=== PATIENT | female | born 1950 | race Caucasian/White ===

== ENCOUNTER → 2017-07-13 | Outpatient (CLI) | payer MEDICARE ==
--- NOTE | 2017-07-15 08:22 | MM ---
Reason for exam: screening (asymptomatic). Last mammogram was performed 1 year and 2 months ago. History: Patient is postmenopausal and has history of other cancer at age 56. Family history of breast cancer in paternal cousin. Benign MG stereo VAD BX RT of the right breast, December 24, 2014. Cancelled Left Mammotome of the left breast, May 24, 2007. Attempted Procedure of the left breast, May 24, 2007. Benign cyst aspiration, 1986. Physical Findings: A clinical breast exam by your physician is recommended on an annual basis and results should be correlated with mammographic findings. MG 3D Screening Mammo W/Cad Bilateral CC and MLO view(s) were taken. Prior study comparison: May 01, 2016, bilateral MG screening mammo w CAD. December 16, 2014, right breast MG work up mamm w CAD RT. December 10, 2014, bilateral MG screening mammo w CAD. April 13, 2013, bilateral digital screening mammo w/CAD. There are scattered fibroglandular densities. There are benign oil cysts. Previous mammotome biopsy within the right breast. No significant changes when compared with prior studies. ASSESSMENT: Negative, BI-RAD 1 RECOMMENDATION: Routine screening mammogram of both breasts in 1 year. Manage patient on a clinical basis. If there is recurrence of a palpable abnormality, targeted ultrasound can be performed.
== END | disposition home or self-care (01) ==
LOC: RADMAMWWP 14:36
PROVIDERS: ATTEND Family Medicine
DX: Z12.31 Encounter for screening mammogram for malignant neoplasm of breast (principal)
CPT/HCPCS: 77063; 77067

== ENCOUNTER 2017-09-07 07:11 | Day surgery (SDC) | payer MEDICARE ==
[2017-09-02 16:11] VITALS: BMI 39.0
[~2017-09-07 07:11] MED LIST: DEXAMETHASONE SOD PHOSPHATE 10 MG/ML 1 ML VIAL IV ONE; LACTATED RINGERS 1,000 ML IV SCH; ONDANSETRON 4 MG/2 ML VIAL IVP ONE
[2017-09-07] MEDS ORDERED: LIDOCAINE 1% 20 ML VIAL (10MG/ML) FOR IV START INTRADERMA ONE (07:22)
[2017-09-07 07:31] VITALS: RESP 16; TEMP 98.3
[2017-09-07 07:43] LABS: Glucose,Whole Blood 89 mg/dL (75-99)
[2017-09-07] MEDS ORDERED: GLYCOPYRROLATE 0.2 MG/ML 2 ML VIAL ONE (08:27)
[2017-09-07] MEDS ORDERED: PROPOFOL 10 MG/ML 20 ML VIAL IV ONE (08:27)
[2017-09-07] MEDS ORDERED: LIDOCAINE 1% INJ 10MG/ML (20 ML MDV) ONE (08:27)
--- NOTE | 2017-09-07 09:06 | P.PCN ---
Date of Procedure: 09/07/17 Procedure(s) Performed: Brief history: Patient is a pleasant 67-year-old pleasant white female scheduled for an elective upper endoscopy as well as colonoscopy as a part of evaluation of intermittent episodes of nausea vomiting for the last 6 months duration and prior history of colon polyps. Last colonoscopy was 5 years ago. Procedure performed: Esophagogastroduodenoscopy Colonoscopy with snare polypectomy Preoperative diagnosis: Intermittent nausea and vomiting of 6 month duration History of colon polyps Anesthesia: MAC Procedure: After informed consent was obtained from the patient was brought into the endoscopy unit and IV sedation was administered by anesthesia under continuous monitoring. Initially upper endoscopy was done. The Olympus GF 160 video endoscope was inserted inserted into the mouth and esophagus intubated without any difficulty and was gradually advanced into the stomach and duodenum and carefully examined. The bulb and second part of the duodenum appeared normal. The scope was then withdrawn into the stomach adequately insufflated with air and upon careful examination the antrum had scattered erosions consistent with gastritis and biopsies were done from this area. The body, cardia and fundus appeared normal. The scope was then withdrawn into the esophagus. The GE junction was located at 40 cm to the incisors. It appeared regular with no erythema erosions or ulcerations. Rest of the esophagus appeared normal. Patient tolerated the procedure well. At this time the patient continued to remain sedation. Initial digital rectal examination was normal. Olympus CF 160 video colonoscope was then inserted into the rectum and gradually advanced to the cecum without any difficulty. Careful examination was performed as the scope was gradually being withdrawn. The prep was poor and thorough irrigation was performed using irrigation system.. The cecum, appeared normal. In the ascending colon there was a 1 cm polyp that was removed by snare polypectomy. The rest of the ascending colon, transverse colon, descending colon, sigmoid colon and rectum appeared normal. In the distal rectum there were 2 polyps measuring 5 mm and 1 cm in size both of which were removed by snare polypectomy. Retroflexion was performed in the rectum and no lesions were noted. Patient tolerated the procedure well. Impression: 1. Upper endoscopy revealed antral erosive gastritis 2. Colonoscopy revealed 1 cm ascending colon polyp and 5mm,1 cm rectal polyp status post snare polypectomy Recommendations: Findings of this examination were discussed with the patient as well as her family. She was advised to follow with the biopsy results. She the biopsy shows a tubular adenoma she can have a repeat colonoscopy in 3 years.
[2017-09-07 09:23] VITALS: BP 111/80; PULSE 75
== END 2017-09-07 09:41 | disposition home or self-care (01) ==
LOC: ORWHC2ENDO 07:11
PROVIDERS: ATTEND Internal Medicine Gastroenterology
DX: Z12.11 Encounter for screening for malignant neoplasm of colon (principal); D12.2 Benign neoplasm of ascending colon; K62.1 Rectal polyp; K29.50 Unspecified chronic gastritis without bleeding; Z86.010 Personal history of colon polyps; I10 Essential (primary) hypertension; E78.5 Hyperlipidemia, unspecified; J44.9 Chronic obstructive pulmonary disease, unspecified; F39 Unspecified mood [affective] disorder; Z86.73 Personal history of transient ischemic attack (TIA), and cerebral infarction without residual deficits; Z86.718 Personal history of other venous thrombosis and embolism; Z79.82 Long term (current) use of aspirin; Z79.899 Other long term (current) drug therapy; Z79.52 Long term (current) use of systemic steroids; Z88.5 Allergy status to narcotic agent; Z88.2 Allergy status to sulfonamides; Z87.891 Personal history of nicotine dependence
CPT/HCPCS: 45385; 43239; J2001; J2704; 88305

== ENCOUNTER → 2018-07-31 | Outpatient (CLI) | payer MEDICARE ==
--- NOTE | 2018-08-01 09:52 | MM ---
Reason for exam: screening (asymptomatic). Last mammogram was performed 1 year and 1 month ago. History: Patient is postmenopausal and has history of other cancer at age 56. Family history of breast cancer in paternal cousin at age 33. Benign MG stereo VAD BX RT of the right breast, December 24, 2014. Cancelled Left Mammotome of the left breast, May 24, 2007. Attempted Procedure of the left breast, May 24, 2007. Benign cyst aspiration, 1986. Physical Findings: A clinical breast exam by your physician is recommended on an annual basis and results should be correlated with mammographic findings. MG 3D Screening Mammo W/Cad Bilateral CC and MLO view(s) were taken. Prior study comparison: July 13, 2017, bilateral MG 3d screening mammo w/cad. May 01, 2016, bilateral MG screening mammo w CAD. There are scattered fibroglandular densities. Stable benign calcifications. There is no discrete abnormality. No significant changes when compared with prior studies. ASSESSMENT: Benign, BI-RAD 2 RECOMMENDATION: Routine screening mammogram of both breasts in 1 year.
== END | disposition home or self-care (01) ==
LOC: RADMAMWWP 08:42
PROVIDERS: ATTEND Family Medicine
DX: Z12.31 Encounter for screening mammogram for malignant neoplasm of breast (principal)
CPT/HCPCS: 77063; 77067

== ENCOUNTER → 2021-02-20 | Outpatient (CLI) | payer MEDICARE ==
--- NOTE | 2021-02-20 10:50 | CT ---
EXAMINATION TYPE: CT thoracic spine wo con DATE OF EXAM: 02/20/2021 COMPARISON: None HISTORY: 70-year-old female Back pain TECHNIQUE: Contiguous axial scanning of the thoracic spine without IV contrast. Coronal and sagittal reconstructions performed. CT DLP: 1405.2 mGycm Automated exposure control for dose reduction was used. FINDINGS: There is an incidental highly suspicious lobulated mass posterior right base measuring 6.4 x 4.3 cm. PET/CT for further evaluation. Gentle reverse S-shaped scoliotic curvature. Suggestion of old healed fracture deformity of the T2 spinous process. Moderate to advanced spondylitic change visualized lower cervical spine with hypertrophic facet and u ncovertebral joint arthropathy. Facet arthropathy throughout the thoracic spine. Trace grade 1 anterolisthesis T5-T6 and T6-T7. Trace grade 1 retrolisthesis T12-L1. By CT, no large focal disc herniation or evident canal compromise is seen. Tiny posterior protrusions may be present such as at T8-T9. On the left, facet arthropathy contributes to variable mild neural foraminal narrowing upper and lowe r thoracic spine. On the right, changes result in variable mild neuroforaminal narrowing in the upper thoracic spine. No high-grade foraminal compromise is seen. IMPRESSION: 1. INCIDENTAL HIGHLY SUSPICIOUS LOBULATED MASS POSTERIOR RIGHT LUNG BASE MEASURING 6.4 X 4.3 CM. PULM ONARY MEDICINE REFERRAL AND PET/CT EVALUATION ADVISED. 2. GENTLE REVERSE S-SHAPED SCOLIOSIS. 3. CERVICAL SPINE DEMONSTRATES MODERATE TO ADVANCED SPONDYLOTIC CHANGE . 4. SCATTERED [id number] FACET ARTHROPATHY THROUGHOUT THE THORACIC SPINE. DEGENERATIVE GRADE 1 S PONDYLOLISTHESIS T5-T6, T6-T7, AND T12-L1. 5. TINY POSTERIOR DISC PROTRUSIONS MAY BE PRESENT SUCH THAT T8-T9. BY CT, NO EVIDENT CANAL COMPROM ISE. 6. VARIABLE MILD NEURAL FORAMINAL NARROWING. NO HIGH-GRADE FORAMINAL COMPROMISE SEEN.
--- NOTE | 2021-02-20 11:00 | CT ---
EXAMINATION TYPE: CT lumbar spine wo con DATE OF EXAM: 02/20/2021 COMPARISON: None HISTORY: 70-year-old female M54.5, M4.6, Back pain TECHNIQUE: Contiguous axial scanning of the lumbar spine without IV contrast. Coronal and sagittal re constructions performed. CT DLP: 1843.80 mGycm Automated exposure control for dose reduction was used. FINDINGS: Incidental 3.8 cm infrarenal AAA and some scattered sigmoid colonic diverticulosis. Partially visualized posterior right basilar mass as mentioned on CT of the thoracic spine. Vertebral body heights are preserved. Moderate degenerative disc disease T12-L1 with narrowed, desiccated, and bulging disc. There is a levoconvex curvature at the mid lumbar spine with moderate degenerative disc disease along the right lateral aspect of L2-L3 spinal curvature. Compensatory moderate to severe degenerative disc disease towards the left at L4-L5. Bulging discs are present throughout. 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 Corresponding ligamentum flavum thickening. Accentuated lumbar lordosis. Grade 1 retrolisthesis T12-L1, L1-L2, L2-L3, L3-L4. Nearly grade 2 anterolisthesis L4-L5. Degenerative interbody ankylosis at the L5-S1 level. At T12-L1, diffuse disc bulge without significant spinal canal stenosis. Minimal inferior foraminal n arrowing on the right. At L1-L2, diffuse disc bulge. No significant spinal canal stenosis. Minimal inferior neural foraminal narrowing on the right. At L2-L3, there is diffuse disc bulge contributing to a mild bile canal stenosis. Along with facet ar thropathy, changes result in a moderate right neuroforaminal stenosis. At L3-L4, hypertrophic facet arthropathy and bulging disc with ligamentum flavum thickening. Circumfe rential attenuation of the thecal sac without significant spinal canal stenosis. Changes result in mo derate right and mild left foraminal stenosis. At L4-L5, ligamentum flavum thickening, nearly grade 2 anterolisthesis, hypertrophic facet arthropath y, and bulging disc. Changes result in a focal moderate or severe spinal canal stenosis. Severe left and moderate right neuroforaminal stenosis. At L5-S1, bony interbody ankylosis. Hypertrophic facet arthropathy. Mild bilateral neuroforaminal tess rowing. No spinal canal stenosis. IMPRESSION: 1. INCIDENTAL INFRARENAL AAA AT 3.8 CM. SUSPICIOUS POSTERIOR RIGHT BASILAR PULMONARY MASS MENTIONE D ON CT OF THE THORACIC SPINE TODAY. 2. DEGENERATED LEVOCONVEX SCOLIOSIS. 3. MODERATE TO SEVERE DEGENERATIVE DISC DISEASE TOWARDS THIS SIDE OF CONCAVITY, ALONG THE RIGHT LATER AL ASPECT OF L2-L3 AND LEFT LATERAL ASPECT OF L4-L5. 4. ADVANCED HYPERTROPHIC FACET ARTHROPATHY WITH SCATTERED LIGAMENTUM FLAVUM THICKENING, AND BAASTRUP' S DISEASE. 5. DEGENERATIVE GRADE 1 RETROLISTHESIS T12 THROUGH L4 LEVELS AND NEARLY GRADE 2 ANTEROLISTHESIS L4-L5 . 6. AT L4-L5, CHANGES RESULT IN OVERALL MODERATE TO SEVERE SPINAL CANAL STENOSIS. SEVERE LEFT AND MODE RATE RIGHT NEURAL FORAMINAL STENOSIS. 7. MILD OVERALL NARROWING OF THE SPINAL CANAL AT L3-L4. MODERATE RIGHT AND MILD LEFT NEUROFORAMINAL S TENOSIS. ADDITIONAL MODERATE RIGHT NEUROFORAMINAL STENOSIS AT L2-L3.
--- NOTE | 2021-02-22 15:46 | MR ---
EXAMINATION TYPE: MR tspine/lspine wo con DATE OF EXAM: 02/20/2021 COMPARISON: CT thoracic and lumbar spine 02/20/2021 HISTORY: Low back pain, thoracic pain TECHNIQUE: Multiplanar, multisequence imaging of the thoracic and lumbar spine is performed without I V contrast. FINDINGS: Thoracic spine MRI: There is no significant spinal stenosis or foraminal encroachment. There is a sli ght spinal curvature. There is multilevel spondylosis present with some associated loss of disc heigh t and signal at intervertebral levels. No sizable disc herniation present. Facet arthropathy changes are present multiple levels. There is a soft tissue mass present in the right lower lobe as noted on CT. IMPRESSION: Right lower lobe lung mass. Degenerative disc disease, mild scoliosis. Facet arthropathy. Lumbar spine MRI: Spinal curvature is again noted. Infrarenal abdominal aortic ectasia to 3.5 cm note d. Lumbar vertebral bodies show preserved height. There is multilevel spondylosis with endplate disco genic marrow signal change, loss of disc height signal at intervertebral levels especially L5-S1, L3- 4 and L2-3, L1 to consistent with disc desiccation and degenerative disc disease. Sagittal images of the lumbar spine show anterolisthesis grade 1 L4-5 L5-S1 shows posterior extension endplate disc complex effaces the anterior thecal sac, no significant spinal stenosis or foraminal encroachment. There is facet arthropathy change. L4-5: Hypertrophic changes of the facets with associated circumferential posterior disc bulge results in a trefoil appearance of the thecal sac, moderate to severe spinal stenosis. Listhesis also contri butes to cause bilateral foraminal encroachment. There is encroachment on the lateral recesses. L3-4: Circumferential posterior disc bulge causes anterior mass effect on the thecal sac. There is fa cet arthropathy change with hypertrophy of ligamentum flavum present. There is a mild spinal stenosis , circumferential extension endplate disc complex encroaches on the inferior aspect of the foramina. L2-3: Posterior broad-based disc bulge causes anterior mass effect on the thecal sac. Circumferential extension of endplate disc complex causes some foraminal encroachment inferior aspect on the right. There is facet arthropathy change present. L1-2: Posterior broad-based disc bulge causes mild anterior mass effect on the thecal sac. There is s ome facet arthropathy change. No significant foraminal encroachment or spinal stenosis. T12-L1: Posterior broad-based disc bulge causes mild anterior mass effect on the thecal sac. There ar e hypertrophic changes at the facets causing some posterior lateral mass effect on the thecal sac. No significant foraminal encroachment. IMPRESSION: Degenerative disc disease, spinal stenosis, spondylolisthesis, facet arthropathy and infr arenal abdominal aortic ectasia.
== END | disposition home or self-care (01) ==
LOC: RADCTMAIN 07:40
PROVIDERS: ATTEND Orthopaedic Surgery
DX: M47.814 Spondylosis without myelopathy or radiculopathy, thoracic region (principal); M43.14 Spondylolisthesis, thoracic region; M99.72 Connective tissue and disc stenosis of intervertebral foramina of thoracic region; M51.36 Other intervertebral disc degeneration, lumbar region; M47.816 Spondylosis without myelopathy or radiculopathy, lumbar region; M43.15 Spondylolisthesis, thoracolumbar region; M48.061 Spinal stenosis, lumbar region without neurogenic claudication; M41.86 Other forms of scoliosis, lumbar region; M99.73 Connective tissue and disc stenosis of intervertebral foramina of lumbar region
CPT/HCPCS: 72128; 72131; 72146; 72148

== ENCOUNTER → 2021-02-27 | Outpatient (CLI) | payer MEDICARE ==
[2021-02-27 11:13] LABS: African American GFR (CKD) >90 (>60 ml/min/1.73 sqM); Blood Urea Nitrogen 16 mg/dL (7-17); Non-African American GFR(CKD) 89 (>60 ml/min/1.73 sqM)
--- NOTE | 2021-02-27 11:49 | CT ---
EXAMINATION TYPE: CT chest w con DATE OF EXAM: 02/27/2021 COMPARISON: None HISTORY: Abnormal prior scan. CT DLP: 528.6 mGycm Automated exposure control for dose reduction was used. CONTRAST: CT scan of the chest is performed with IV Contrast, patient injected with 100 mL of Isovue 300. FINDINGS: LUNGS: Partially pleural-based mass right lower lobe medially measuring 6.0 x 4.2 x 5.0 cm. This is f elt to reflect malignancy until proven otherwise. Recommend PET/CT for further evaluation. No additio nal masses noted. Small groundglass nodule left upper lobe measuring 8.7 mm image 19. Scattered areas of groundglass opacity within the upper. MEDIASTINUM: There are no greater than 1 cm hilar or mediastinal lymph nodes. No pericardial effusi on is seen. Thoracic aorta is of normal caliber. The heart is not enlarged. UPPER ABDOMEN: No significant abnormality appreciated. OTHER: No additional significant abnormality is seen. IMPRESSION: 1. Suspicious partially pleural-based mass right lower lobe. PET/CT advised to exclude malignancy. 2. Groundglass nodule left upper lobe as well as additional non nodule groundglass changes may be inf lammatory/postinflammatory in nature..
== END | disposition home or self-care (01) ==
LOC: RADCTMAIN 10:28
PROVIDERS: ATTEND Internal Medicine Critical Care Medicine
DX: R91.8 Other nonspecific abnormal finding of lung field (principal); R91.1 Solitary pulmonary nodule
CPT/HCPCS: 82565; 84520; 71260; 36415; Q9967

== ENCOUNTER → 2021-03-19 | Outpatient (CLI) | payer MEDICARE ==
--- NOTE | 2021-03-20 09:52 | MM ---
Reason for exam: screening (asymptomatic). Last mammogram was performed 2 years and 8 months ago. History: Patient is postmenopausal and has history of other cancer at age 56. Family history of breast cancer in paternal cousin at age 33. Benign MG stereo VAD BX RT of the right breast, December 24, 2014. Cancelled Left Mammotome of the left breast, May 24, 2007. Attempted Procedure of the left breast, May 24, 2007. Benign cyst aspiration, 1986. Physical Findings: A clinical breast exam by your physician is recommended on an annual basis and results should be correlated with mammographic findings. MG 3D Screening Mammo W/Cad Bilateral CC and MLO view(s) were taken. Prior study comparison: July 31, 2018, bilateral MG 3d screening mammo w/cad. July 13, 2017, bilateral MG 3d screening mammo w/cad. There are scattered fibroglandular densities. Stable benign calcifications. There is no discrete abnormality. No significant changes when compared with prior studies. ASSESSMENT: Benign, BI-RAD 2 RECOMMENDATION: Routine screening mammogram of both breasts in 1 year.
== END | disposition home or self-care (01) ==
LOC: RADMAMWWP 07:27
PROVIDERS: ATTEND Family Medicine
DX: Z12.31 Encounter for screening mammogram for malignant neoplasm of breast (principal); Z80.3 Family history of malignant neoplasm of breast; Z85.89 Personal history of malignant neoplasm of other organs and systems
CPT/HCPCS: 77063; 77067

== ENCOUNTER 2021-03-31 08:46 | Day surgery (SDC) | payer MEDICARE ==
[2021-03-31] MEDS ORDERED: ALPRAZolam 0.25 MG TAB PO STA (09:46)
[2021-03-31 09:52] LABS: Mean Platelet Volume 7.1; Platelet Count 324 k/uL (150-450)
[2021-03-31 09:57] LABS: INR 1.1 (<1.2); Prothrombin Time 11.1 sec (9.0-12.0)
[2021-03-31 10:25] VITALS: RESP 18
--- NOTE | 2021-03-31 10:54 | XR ---
EXAMINATION TYPE: XR chest 1V portable DATE OF EXAM: 03/31/2021 COMPARISON: Chest CT February 27, 2021 HISTORY: Post right lung biopsy. TECHNIQUE: Single AP portable frontal upright view of the chest is obtained. FINDINGS: There is some chronic parenchymal changes bilaterally without suspicious new focal air spa ce opacity, pleural effusion, or pneumothorax seen. Posterior right basilar lung mass is redemonstrat ed. The cardiac silhouette size is stable and mildly enlarged. Underlying scoliosis again seen. IMPRESSION: No pneumothorax after right lung biopsy.
[2021-03-31 11:27] VITALS: BP 134/74; PULSE 84
--- NOTE | 2021-03-31 12:57 | CT ---
EXAMINATION TYPE: CT biopsy lung RT DATE OF EXAM: 03/31/2021 HISTORY: Lung mass right lower lobe COMPARISON: Chest CT dated 02/27/2021 Maximal barrier technique was utilized, hand hygiene obtained with soap and water. The skin overlyin g a suitable path to the mass in the right lower lobe was localized using CT and the overlying skin w as prepped and draped. Lidocaine used for local anesthesia. A skin santiago made with a scalpel. Using CT guidance, access was gained to the lesion with a 20-gauge core needle through a 19-gauge guide. Core specimen submitted to cytology. 3 pass(es) performed in all. Following the procedure no immed iate complications. The patient is discharged in stable condition. Hemostasis achieved. IMPRESSION: SUCCESSFUL CT GUIDED BIOPSY. PATHOLOGY PENDING. THIS PROCEDURE WAS PERFORMED BY THE UNDERSIGNED.
--- NOTE | 2021-03-31 13:54 | XR ---
EXAMINATION TYPE: XR chest 1V portable DATE OF EXAM: 03/31/2021 COMPARISON: Chest x-ray from earlier today HISTORY: Right lung biopsy. TECHNIQUE: Single frontal view of the chest is obtained. FINDINGS: There is mild chronic emphysematous change without suspicious new focal air space opacity, pleural effusion, or pneumothorax seen. Right medial basilar mass redemonstrated. The cardiac silhou ette size is stable and mildly enlarged. Slight underlying scoliosis redemonstrated. IMPRESSION: No pneumothorax after right medial basilar mass biopsy.
== END 2021-03-31 13:00 | disposition home or self-care (01) ==
LOC: RADPROMAIN 08:46
PROVIDERS: ATTEND Internal Medicine Critical Care Medicine
DX: C34.91 Malignant neoplasm of unspecified part of right bronchus or lung (principal)
CPT/HCPCS: 32408; 71045; 77012; 85049; 85610; 88305; 88342

== ENCOUNTER → 2021-04-10 | Outpatient (CLI) | payer MEDICARE ==
--- NOTE | 2021-04-10 15:39 | PE ---
EXAMINATION TYPE: PET CT fusion skull to thigh DATE OF EXAM: 04/10/2021 COMPARISON: Chest CT February 27, 2021 HISTORY: Right lung nodule. Abnormal CT. TECHNIQUE: Following the intravenous administration of 10.45 mCi of F-18 FDG, whole body images are performed from the skull base to the midthigh. Images are reviewed on the computer in the coronal, a xial, and sagittal planes. Reconstructed rotating images are created on independent workstation and reviewed on the computer. A localization and attenuation correction CT is performed in conjunction with the PET scan. Blood glucose level equals 101. SCAN: Initial Scan FINDINGS: SKULL BASE AND NECK: No suspicious hypermetabolic uptake. CHEST, MEDIASTINUM, AND HILAR REGION: Abnormal posterior lobulated right lung mass axial image 113 me asures 6.5 x 4.1 cm, max SUV is 13.06. No abnormal hypermetabolic thoracic adenopathy. ABDOMEN AND PELVIS: No abnormal hypermetabolic adrenal masses. Normal excretion. OSSEOUS STRUCTURES: No abnormal hypermetabolic uptake. OTHER CT: There is coronary artery calcification and/or stents. Mild cardiomegaly. Uterus is surgically absent. Grade 1 anterolisthesis L4 on L5. Moderate to severe disc space narrowin g lumbosacral junction. IMPRESSION: Abnormal hypermetabolic uptake in the posterior right basilar mass presumed neoplasm. No suspicious adenopathy or metastatic disease seen.
== END | disposition home or self-care (01) ==
LOC: RADPETMAIN 10:45
PROVIDERS: ATTEND Internal Medicine Critical Care Medicine
DX: R91.8 Other nonspecific abnormal finding of lung field (principal)
CPT/HCPCS: 78815; A9552

== ENCOUNTER → 2021-04-17 | Outpatient (CLI) | payer MEDICARE ==
--- NOTE | 2021-04-18 04:33 | MR ---
EXAMINATION TYPE: MR brain wo/w con DATE OF EXAM: 04/17/2021 COMPARISON: None HISTORY: Lung cancer. CONTRAST: Standard multiplanar, multisequence MRI departmental protocol utilizing 10.5 mL intravenous Gadavist gadolinium contrast. There is cerebral cortical atrophy. There is no mass effect nor midline shift. There is no sign of in tracranial hemorrhage. There is diffuse increased signal on the T2 and FLAIR images in the rafia. Ther e is increased signal adjacent to the lateral ventricles bilaterally. There are scattered foci of inc reased signal in the periventricular white matter that measure up to 5 mm. Total number is approximat ramsey 15. On the diffusion images there is some subtle increased signal in the rafia with The sella turcica appears normal. Symmetrical pattern. There is no evidence of orbital mass. Corpus callosum appears intact. The contrast images show no pat hologic enhancement. There is normal enhancement of the venous sinuses. IMPRESSION: Abnormal increased signal in the periventricular white matter as well as the rafia consistent with mul tifocal small vessel ischemia . Demyelinating disease not excluded. No cortical infarct.
== END | disposition home or self-care (01) ==
LOC: RADMRIMAIN 08:53
PROVIDERS: ATTEND Internal Medicine Hematology & Oncology
DX: C34.90 Malignant neoplasm of unspecified part of unspecified bronchus or lung (principal); R93.0 Abnormal findings on diagnostic imaging of skull and head, not elsewhere classified
CPT/HCPCS: 70553; A9585

== ENCOUNTER 2021-05-25 11:44 | Outpatient (CLI) | payer MEDICARE ==
--- NOTE | 2021-05-25 11:39 | US ---
EXAMINATION TYPE: US venous doppler duplex LE LT DATE OF EXAM: 05/25/2021 11:31 AM COMPARISON: NONE CLINICAL HISTORY: LLE; R22.42 Localized swelling, mass and lump, lef. history of DVt in Left lower ex tremity SIDE PERFORMED: Left TECHNIQUE: The lower extremity deep venous system is examined utilizing real time linear array sonog terry with graded compression, doppler sonography and color-flow sonography. VESSELS IMAGED: Common Femoral Vein Deep Femoral Vein Greater Saphenous Vein * Femoral Vein Popliteal Vein Small Saphenous Vein * Proximal Calf Veins (* superficial vessels) Left Leg: Small amount of thrombus seen in the Proximal FV,PopV and the GSV in the calf. Slow flow n oted in the GSV at the mid thigh level. IMPRESSION: DVT as noted as well as superficial vein thrombosis.
== END 2021-05-25 14:10 | disposition left against medical advice (07) ==
LOC: RADXRWHC 11:44 → EC 11:44
PROVIDERS: ATTEND Emergency Medicine
DX: R22.42 Localized swelling, mass and lump, left lower limb (principal); C34.31 Malignant neoplasm of lower lobe, right bronchus or lung; J44.9 Chronic obstructive pulmonary disease, unspecified; Z79.899 Other long term (current) drug therapy; Z87.891 Personal history of nicotine dependence; Z88.2 Allergy status to sulfonamides; Z88.5 Allergy status to narcotic agent

== ENCOUNTER → 2021-07-07 | Outpatient (CLI) | payer MEDICARE ==
[2021-07-07 11:21] LABS: African American GFR (CKD) >90 (>60 ml/min/1.73 sqM); Blood Urea Nitrogen 9 mg/dL (7-17); Non-African American GFR(CKD) >90 (>60 ml/min/1.73 sqM)
--- NOTE | 2021-07-07 12:03 | CT ---
EXAMINATION TYPE: CT chest w con DATE OF EXAM: 07/07/2021 COMPARISON: 04/10/2021 HISTORY: lugs ca CT DLP: 745 mGycm Automated exposure control for dose reduction was used. TECHNIQUE: CT scan of the chest is performed with IV Contrast, patient injected with 100 mL of Isovue 300. MIP Images are created on CT scanner and reviewed. 3D reconstructed images are created on an independent workstation and reviewed. FINDINGS: LUNGS: The prior exam the posterior right lung mass measures 6.5 x 4.1 cm and now 5.5 x 4[address] eural effusion or pneumothorax. Along the medial margin superior segment right lower lobe there are 2 mm subpleural nodules which are too small to characterize. Vague densities measuring 4 mm within the right upper lobe are likely inflammatory. Additional subsegmental areas of consolidation are most ty pical of atelectasis with no evidence of pneumothorax.. MEDIASTINUM: There are no greater than 1 cm hilar or mediastinal lymph nodes. No pericardial effusi on is seen. Coronary artery calcification noted. Aorta of normal caliber. There is a filling defect within a superior segment right lower lobe pulmonary artery branch suspicious for pulmonary embolism. OTHER: Hypertrophic and degenerative changes of the spine. IMPRESSION: 1. There is interval slight diminution in the size of the right posterior lung mass previously measur ing 6.5 x 4.1 cm and now measuring 5.5 x 4.1 cm. 2. There is interval filling defect within a right lower lobe pulmonary arterial branch compatible wi th a pulmonary embolism. Report called to referring clinician 11:58 AM, 07/07/2021.
== END | disposition home or self-care (01) ==
LOC: RADCTMAIN 10:26
PROVIDERS: ATTEND Internal Medicine Hematology & Oncology
DX: C34.31 Malignant neoplasm of lower lobe, right bronchus or lung (principal); R91.8 Other nonspecific abnormal finding of lung field
CPT/HCPCS: 82565; 84520; 71260; 36415; Q9967

== ENCOUNTER 2021-09-26 10:35 | Emergency (ER) | payer MEDICARE, SELFPAY ==
[2021-09-26 10:47] VITALS: RESP 18; TEMP 98.1
--- NOTE | 2021-09-26 11:36 | XR ---
EXAMINATION TYPE: XR chest 2V DATE OF EXAM: 09/26/2021 COMPARISON: Chest x-ray March 31, 2021. CT chest July 07, 2021 HISTORY: History of lung cancer with difficulty in breathing. TECHNIQUE: Frontal and lateral views of the chest are obtained. FINDINGS: There is mild chronic parenchymal change without suspicious new focal air space opacity, p leural effusion, or pneumothorax seen. Persistent medial right basilar mass or neoplasm. The cardiac silhouette size is stable and mildly enlarged. Underlying dextroconvex scoliosis centered lower thor acic spine redemonstrated. IMPRESSION: Chronic changes and mild cardiomegaly without new acute pulmonary process.
--- NOTE | 2021-09-26 11:48 | ED ---
General Adult HPI - General Chief complaint: Recheck/Abnormal Lab/Rx Stated complaint: Abnormal Labs Time Seen by Provider: 09/26/21 10:50 Source: patient, family, RN notes reviewed, old records reviewed Mode of arrival: wheelchair Limitations: no limitations - History of Present Illness Initial comments: This is a 71-year-old female presents to the emergency department stating that she got a call from her oncologist and told her to come to the emergency department because her electrolytes off. Patient states she feels a little weaker than normal but aside from that she feels at her baseline. Patient denies any difficulty breathing shortness of breath per patient any palpitations. Patient denies any recent fever chills or cough. Patient denies any abdominal pain patient denies any nausea vomiting diarrhea. Patient states she has been diagnosed with lung cancer last March and is being treated for DVTs in her legs. - Related Data Home Medications Medication Instructions Recorded Confirmed Aspirin [Adult Low Dose Aspirin EC] 81 mg PO DAILY 09/02/17 03/23/21 DULoxetine HCL [Cymbalta] 60 mg PO QAM 09/02/17 03/23/21 Losartan [Cozaar] 25 mg PO QAM 09/02/17 03/23/21 Simvastatin [Zocor] 40 mg PO HS 09/02/17 03/23/21 buPROPion HCL [Wellbutrin SR] 150 mg PO QAM 09/02/17 03/23/21 Albuterol Nebulized [Ventolin 2.5 mg INHALATION BID PRN 03/23/21 03/23/21 Nebulized] Cholecalciferol [Vitamin D3 (25 1 tab PO DAILY 03/23/21 03/23/21 Mcg = 1000 Iu)] Meloxicam 15 mg PO DAILY 03/23/21 03/23/21 Omeprazole 20 mg PO DAILY 03/23/21 03/23/21 Ubidecarenone [Co Q-10] 100 mg PO DAILY 03/23/21 03/23/21 Umeclidinium Brm/Vilanterol Tr 1 puff INHALATION DAILY 03/23/21 03/23/21 [Anoro Ellipta 62.5-25 Mcg INH] Allergies Allergy/AdvReac Type Severity Reaction Status Date / Time codeine Allergy headache Verified 09/26/21 10:47 Sulfa (Sulfonamide Allergy Migraine Verified 09/26/21 10:47 Antibiotics) headache Review of Systems ROS Statement: Those systems with pertinent positive or pertinent negative responses have been documented in the HPI. ROS Other: All systems not noted in ROS Statement are negative. Past Medical History Past Medical History: Cancer, COPD, CVA/TIA, Deep Vein Thrombosis (DVT), Hyperlipidemia, Hypertension Additional Past Medical History / Comment(s): hx of colon polyps, states mult DVT left leg, hx skin ca, current bronchitis, lung Ca History of Any Multi-Drug Resistant Organisms: None Reported Past Surgical History: Adenoidectomy, Hysterectomy, Tonsillectomy Additional Past Surgical History / Comment(s): bilateral cataract removal Past Anesthesia/Blood Transfusion Reactions: No Reported Reaction Past Psychological History: No Psychological Hx Reported Smoking Status: Former smoker Past Alcohol Use History: Rare - Past Family History Daughter(s) Family Medical History: Deep Vein Thrombosis (DVT) General Exam - General Exam Comments Initial Comments: GENERAL: Patient is well-developed and well-nourished. Patient is nontoxic and well- hydrated and is in no acute distress. ENT: Neck is soft and supple. No significant lymphadenopathy is noted. Oropharynx is clear. Moist mucous membranes. Neck has full range of motion without eliciting any pain. EYES: The sclera were anicteric and conjunctiva were pink and moist. Extraocular movements were intact and pupils were equal round and reactive to light. Eyelids were unremarkable. PULMONARY: Unlabored respirations. Good breath sounds bilaterally. No audible rales rhonchi or wheezing was noted. CARDIOVASCULAR: There is a regular rate and rhythm without any murmurs gallops or rubs. ABDOMEN: Soft and nontender with normal bowel sounds. SKIN: Skin is clear with no lesions or rashes and otherwise unremarkable. NEUROLOGIC: Patient is alert and oriented x3. Cranial nerves II through XII are grossly in tact. Motor and sensory are also intact. Normal speech, volume and content. Symmetrical smile. MUSCULOSKELETAL: Normal extremities with adequate strength and full range of motion. LYMPHATICS: No significant lymphadenopathy is noted PSYCHIATRIC: Normal psychiatric evaluation. 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 No ST segment elevation or depression I spoke with Dr. Molina he indicated to me that the calcium and so he were extremely low yesterday he just wanted to see if they were really low or was a lab error. Today's calcium and sodium were normal patient is pretty much without symptoms other than feeling a little weak so she can be discharged home to follow-up with Dr. Molina - Lab Data Result diagrams: 09/26/21 12:05 09/26/21 12:05 Lab Results 09/26/21 09/26/21 Range/Units 12:05 12:05 WBC 6.0 (3.8-10.6) k/uL RBC 3.99 (3.80-5.40) m/uL Hgb 12.2 (11.4-16.0) gm/dL Hct 37.9 (34.0-46.0) % MCV 95.2 (80.0-100.0) fL MCH 30.5 (25.0-35.0) pg MCHC 32.0 (31.0-37.0) g/dL RDW 12.9 (11.5-15.5) % Plt Count 245 (150-450) k/uL MPV 7.0 Neutrophils % 70 % Lymphocytes % 18 % Monocytes % 7 % Eosinophils % 3 % Basophils % 1 % Neutrophils # 4.2 (1.3-7.7) k/uL Lymphocytes # 1.1 (1.0-4.8) k/uL Monocytes # 0.4 (0-1.0) k/uL Eosinophils # 0.2 (0-0.7) k/uL Basophils # 0.1 (0-0.2) k/uL Sodium 137 (137-145) mmol/L Potassium 5.3 H (3.5-5.1) mmol/L Chloride 104 (98-107) mmol/L Carbon Dioxide 26 (22-30) mmol/L Anion Gap 7 mmol/L BUN 11 (7-17) mg/dL Creatinine 0.68 (0.52-1.04) mg/dL Est GFR (CKD-EPI)AfAm >90 (>60 ml/min/1.73 sqM) Est GFR (CKD-EPI)NonAf 89 (>60 ml/min/1.73 sqM) Glucose 104 H (74-99) mg/dL Calcium 8.7 (8.4-10.2) mg/dL Magnesium 1.9 (1.6-2.3) mg/dL Total Bilirubin 0.8 (0.2-1.3) mg/dL AST 36 (14-36) U/L ALT 12 (4-34) U/L Alkaline Phosphatase 87 (38-126) U/L Total Protein 7.5 (6.3-8.2) g/dL Albumin 3.9 (3.5-5.0) g/dL Disposition Clinical Impression: Recheck/Abnormal Lab/Rx Disposition: HOME SELF-CARE Condition: Good Additional Instructions: Patient should follow-up with Dr. Molina Is patient prescribed a controlled substance at d/c from ED?: No Referrals: Lobito Morley DO [Primary Care Provider] - 1-2 days Time of Disposition: 13:26
[2021-09-26 12:21] LABS: Basophils # (A) 0.1 k/uL (0-0.2); Basophils % (A) 1 %; Eosinophils # (A) 0.2 k/uL (0-0.7); Eosinophils % (A) 3 %; HCT 37.9 % (34.0-46.0); HGB 12.2 gm/dL (11.4-16.0); Lymphocytes # (A) 1.1 k/uL (1.0-4.8); Lymphocytes % (A) 18 %; MCH 30.5 pg (25.0-35.0); MCV 95.2 fL (80.0-100.0); Monocytes # (A) 0.4 k/uL (0-1.0); Monocytes % (A) 7 %; Neutrophils # (A) 4.2 k/uL (1.3-7.7); Neutrophils % (A) 70 %; Platelet Count 245 k/uL (150-450); RBC 3.99 m/uL (3.80-5.40); RDW 12.9 % (11.5-15.5)
[2021-09-26 12:26] LABS: ALT 12 U/L (4-34); AST 36 U/L (14-36); African American GFR (CKD) >90 (>60 ml/min/1.73 sqM); Albumin 3.9 g/dL (3.5-5.0); Alkaline Phosphatase 87 U/L (38-126); Anion Gap 7 mmol/L; Blood Urea Nitrogen 11 mg/dL (7-17); Calcium 8.7 mg/dL (8.4-10.2); Carbon Dioxide 26 mmol/L (22-30); Chloride 104 mmol/L (98-107); Glucose 104 mg/dL (74-99); Magnesium 1.9 mg/dL (1.6-2.3); Non-African American GFR(CKD) 89 (>60 ml/min/1.73 sqM); Potassium 5.3 mmol/L (3.5-5.1); Sodium 137 mmol/L (137-145); Total Bilirubin 0.8 mg/dL (0.2-1.3); Total Protein 7.5 g/dL (6.3-8.2)
[2021-09-26 13:40] VITALS: BP 119/86; PULSE 87
== END 2021-09-26 13:39 | disposition home or self-care (01) ==
LOC: EC 10:35
DX: R79.9 Abnormal finding of blood chemistry, unspecified (principal); I10 Essential (primary) hypertension; E78.5 Hyperlipidemia, unspecified; J44.9 Chronic obstructive pulmonary disease, unspecified; Z87.891 Personal history of nicotine dependence; Z79.82 Long term (current) use of aspirin; Z79.51 Long term (current) use of inhaled steroids; Z79.899 Other long term (current) drug therapy
CPT/HCPCS: 36415; 71046; 80053; 83735; 85025; 93005; 99284

== ENCOUNTER → 2021-10-21 | Outpatient (CLI) | payer MEDICARE ==
--- NOTE | 2021-10-21 20:16 | NM ---
EXAMINATION TYPE: NM bone scan whole body DATE OF EXAM: 10/21/2021 COMPARISON: Same day chest CT. HISTORY: Lung cancer. Delayed whole-body scanning was performed following the injection of 24.2 mCi Tc 99m MDP. Images acq uired 3 hours post injection. Whole body images in anterior and posterior projection along with addit ional spot images of the thorax abdomen and pelvis are acquired.. FINDINGS: There is poor background uptake but uptake is seen in the bladder with urine leakage below this. No a bnormal radiotracer uptake to suggest metastatic disease to the bone or other suspicious abnormality. Underlying S-shaped scoliosis is noted. IMPRESSION: As above.
--- NOTE | 2021-10-21 23:21 | CT ---
EXAMINATION TYPE: CT chest w con DATE OF EXAM: 10/21/2021 COMPARISON: Multiple CT chests most recently dated 07/07/2021 HISTORY: Lung cancer, follow up CT DLP: 726 mGycm. Automated Exposure Control for Dose Reduction was Utilized. TECHNIQUE: Multiple contiguous axial CT images of the chest were obtained with IV Contrast, patient i njected with 100 mL of Isovue 300. Sagittal and coronal reformatted images were obtained. FINDINGS: Redemonstration of right lower lobe lung mass on the pleural surface, currently measuring 44 x 46 x 6 0 mm in the transverse, AP, CC dimensions (previously measuring 52 x 43 x 60 mm). There is redemonstr ation of two pleural-based nodules along the posteromedial right lower lobe, which are unchanged. Add itionally there are scattered subcentimeter indeterminate pulmonary nodules within the right lower lo be which are unchanged from prior. Central airways are normal course and caliber. No new focal consolidation. No pleural effusion or pne umothorax. Cardiac size appears within normal limits. No pericardial effusion. Thoracic aorta and main pulmonary arteries are of normal caliber. No mediastinal, hilar, or axillary lymphadenopathy. Visualized osseous structures appear intact. Mild exaggerated kyphotic curvature of the thoracic spin e. Mild multilevel degenerative changes of the thoracic spine. Limited visualization of the upper abd omen appears unremarkable. IMPRESSION: 1. Overall unchanged right lower lobe mass allowing for differences in technique. 2. Unchanged pleural-based nodules along the posterior medial right lower lobe and scattered subcenti meter pulmonary nodules within the right lower lobe.
== END | disposition home or self-care (01) ==
LOC: RADNMMAIN 09:49
PROVIDERS: ATTEND Internal Medicine Hematology & Oncology
DX: C34.31 Malignant neoplasm of lower lobe, right bronchus or lung (principal); M41.80 Other forms of scoliosis, site unspecified
CPT/HCPCS: 82565; 84520; 71260; 36415; 78306; A9503; Q9967

== ENCOUNTER → 2022-02-26 | Outpatient (CLI) | payer MEDICARE ==
[2022-02-26 22:40] LABS: Basophils # (A) 0.07 X 10*3/uL (0.00-0.10); Eosinophils # (A) 0.34 X 10*3/uL (0.04-0.35); Eosinophils % (A) 4.6 %; HCT 28.2 % (37.2-46.3); HGB 8.9 g/dL (12.0-15.0); Immature Grans, Automated 0.5 %; Lymphocytes # (A) 2.11 X 10*3/uL (0.90-5.00); Lymphocytes % (A) 28.7 %; MCHC 31.6 g/dL (32.0-37.0); MCV 91.9 fL (80.0-97.0); Mean Platelet Volume 10.4 fL (9.5-12.2); Monocytes # (A) 0.46 X 10*3/uL (0.20-1.00); Monocytes % (A) 6.3 %; NRBC Per 100 WBC 0 /100 WBCS (0.0-0.0); Neutrophils # (A) 4.33 X 10*3/uL (1.80-7.70); Neutrophils % (A) 58.9 %; Platelet Count 299 X 10*3/uL (140-440); RBC 3.07 X 10*6/uL (4.10-5.20); RDW 16.4 % (11.5-14.5); WBC 7.35 X 10*3/uL (4.50-10.00)
== END | disposition home or self-care (01) ==
LOC: LABWHC1 15:04
PROVIDERS: ATTEND Otolaryngology
DX: K12.30 Oral mucositis (ulcerative), unspecified (principal); D64.9 Anemia, unspecified
CPT/HCPCS: 36415; 85025

== ENCOUNTER → 2022-04-21 | Outpatient (CLI) | payer MEDICARE ==
--- NOTE | 2022-04-21 11:29 | CT ---
EXAMINATION TYPE: CT chest w con DATE OF EXAM: 04/21/2022 COMPARISON: Most recent CT October 21, 2021 and older studies HISTORY: lung CA CT DLP: 597.6 mGycm. Automated Exposure Control for Dose Reduction was Utilized. TECHNIQUE: CT scan of the thorax is performed following with IV Contrast, patient injected with 70 m L of Isovue 300. FINDINGS: LUNGS: Persistent posterior right lung mass or neoplasm measuring 4.7 x 3.4 x 4.1 cm axial image 46 a nd coronal image 81 fairly similar to most recent CT were measured there 5.1 x 3.7 x 3.7 cm on my renee surements. Scattered micronodules are stable in size and appearance in the lower lungs. No new or enl arging greater than 5 mm pulmonary nodules or masses. No pleural effusion or pneumothorax seen bilate rally. Mild linear scarring anterior right midlung is redemonstrated. MEDIASTINUM: There are no new greater than 1 cm hilar or mediastinal lymph nodes. No pericardial ef fusion is seen. Bbisrjjw-ia-vdalgh coronary artery calcification is present. Mild cardiomegaly. OTHER: Moderate fecal prominence in the right along with transverse and left colon. Infrarenal AAA is partially imaged on coronal image 51 measuring up to 3.8 cm AP diameter more prominent from prior PE T/CT 2020. Scoliosis centered in the lumbar spine is partially imaged. IMPRESSION: Stable 4.7 cm posterior right lung base mass or neoplasm from most recent CT. No new mass es or adenopathy. More prominent infrarenal 3.8 cm AAA. Advise follow-up imaging evaluation to more d efinitively evaluate.
--- NOTE | 2022-04-21 14:36 | NM ---
EXAMINATION TYPE: NM bone scan whole body DATE OF EXAM: 04/21/2022 COMPARISON: NONE HISTORY: Lung cancer Delayed whole-body scanning was performed following the injection of 22.3 mCi Tc 99m MDP. Images wer e acquired 4 hours post injection. FINDINGS: No suspicious focal radiotracer accumulation is evident. Some contamination inferior to the pelvis. M ild diffuse uptake in the ankles and knees can be degenerative in nature. Milder uptake in the hip co uld be degenerative in nature. No suspicious photopenic defects are evident. IMPRESSION: 1. No suspicious uptake to suggest metastatic disease. 2. Mild diffuse uptake within the lower extremities joint spaces can be degenerative in nature.
== END | disposition home or self-care (01) ==
LOC: RADCTMAIN 08:47
PROVIDERS: ATTEND Internal Medicine Hematology & Oncology
DX: C34.31 Malignant neoplasm of lower lobe, right bronchus or lung (principal); I71.40 Abdominal aortic aneurysm, without rupture, unspecified
CPT/HCPCS: 82565; 84520; 71260; 78306; A9503

== ENCOUNTER → 2022-05-07 | Outpatient (CLI) | payer MEDICARE ==
--- NOTE | 2022-05-08 09:40 | MR ---
EXAMINATION TYPE: MR lumbar spine wo/w con DATE OF EXAM: 05/07/2022 11:07 AM COMPARISON: MRI T and L-spine 02/20/2021 CT chest 04/21/2022, PET 04/10/2021, CT lumbar spine . 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 IV Contrast: 10.5 cc Gadavist. None. FINDINGS: Alignment: The lumbar vertebral bodies have preserved heights. There is grade 1 anterolisthesis of L4 -5. Mild levoscoliosis changes. Cord: The conus medullaris and the distal spinal cord appear unremarkable with regards to their signa l intensity and morphology. No abnormal postcontrast enhancement. Bones/Discs: No osseous masses identified. No abnormal bone marrow edema is visualized on short-term inversion recovery sequences. Multilevel degenerative disc disease is noted and most pronounced at th e L4-L5 and L5-S1. Multilevel disc desiccation is present. No abnormal postcontrast enhancement. Pseu doarthrosis of the spinous process from L2 to L5. T11-T12 and T12-L1: Disc bulge with mild spinal canal stenosis. The neural foramen are patent L1-L2: No evidence of significant spinal canal stenosis or neural foraminal stenosis. L2-L3: Disc bulge with facet joint arthropathy with moderate to severe spinal canal stenosis moderate bilateral neural foraminal stenosis. L3-L4: Disc bulge with facet joint arthropathy with moderate to severe spinal canal stenosis moderate bilateral neural foraminal stenosis. L4-L5: Anterolisthesis with Disc uncovering with facet joint arthropathy result in moderate to severe spinal canal stenosis and moderate to severe left and moderate right neural foraminal stenosis. L5-S1: No evidence of significant spinal canal stenosis. Facet joint arthropathy mild bilateral neura l foraminal stenosis. Other findings: Similar infrarenal aortic aneurysm measuring up to 3.8 cm. IMPRESSION: 1. L4-L5 Grade 1 anterolisthesis with disc uncovering results in large severe spinal canal and moder ate severe left and moderate right neural foraminal stenosis. 2. L2-L3 and L3-L4 moderate to severe spinal canal stenosis secondary to disc bulging and facet joint arthropathy. 3. No abnormal postcontrast enhancement. 4. Baastrup's disease.
== END | disposition home or self-care (01) ==
LOC: RADMRIMAIN 08:57
PROVIDERS: ATTEND Internal Medicine Hematology & Oncology
DX: C34.31 Malignant neoplasm of lower lobe, right bronchus or lung (principal); M47.817 Spondylosis without myelopathy or radiculopathy, lumbosacral region; M51.36 Other intervertebral disc degeneration, lumbar region; M43.16 Spondylolisthesis, lumbar region; M48.26 Kissing spine, lumbar region; M48.061 Spinal stenosis, lumbar region without neurogenic claudication; M99.74 Connective tissue and disc stenosis of intervertebral foramina of sacral region
CPT/HCPCS: 72158; A9585

== ENCOUNTER → 2022-06-03 | Outpatient (CLI) | payer MEDICARE ==
--- NOTE | 2022-06-03 11:04 | USB ---
Reason for Exam: Clinical finding. Patient History: Menarche at age 13. First Full-Term at age 20. Left ovary removed at age 53. Right ovary removed at age 53. Hysterectomy at age 53. Postmenopausal. Other cancer, age 56. Previous chest radiation therapy. Previous chemotherapy. Benign Cyst Aspiration. 12/24/2014, Benign Core Biopsy on the right side. 05/24/2007, Attempted Procedure on the left side. 05/24/2007, Cancelled Left Mammotome on the left side. Paternal cousin had breast cancer, age 33. Risk Values: Sonal 5 year model risk: 1.5%. NCI Lifetime model risk: 4.3%. Prior Study Comparison: 07/13/2017 Bilateral Screening Mammogram, [facility]. 07/31/2018 Bilateral Screening Mammogram, [facility]. 03/19/2021 Bilateral Screening Mammogram, [facility]. Findings: The axilla of the right breast and the retroareolar of the right breast were scanned. Targeted ultrasound subareolar and periareolar region right breast including the axilla. During scanning, the as400 programmer analyst noted a single poor clear nipple discharge. Accordingly, there is an oval 1.0 x 0.5 x 0.3 cm hypoechoic mass just behind the nipple, likely intraductal. Minimal peripheral flow. No other solid or cystic lesion. The site of concern on the area left, 9:00 position shows no discrete sonographic finding. Overall Assessment: Suspicious, BI-RAD 4 Management: Ultrasound Core Biopsy of the right breast. For suspected intraductal papilloma contributing to clear nipple discharge. Results were given to the patient verbally at the time of exam. Electronically signed and approved by: Karis Rios M.D. Radiologist
--- NOTE | 2022-06-03 15:02 | MM ---
Reason for Exam: Follow-up at short interval from prior study. Last mammogram was performed 1 year(s) and 3 month(s) ago. Patient History: Menarche at age 13. First Full-Term at age 20. Left ovary removed at age 53. Right ovary removed at age 53. Hysterectomy at age 53. Postmenopausal. Other cancer, age 56. Previous chest radiation therapy. Previous chemotherapy. Benign Cyst Aspiration. 12/24/2014, Benign Core Biopsy on the right side. 05/24/2007, Attempted Procedure on the left side. 05/24/2007, Cancelled Left Mammotome on the left side. Paternal cousin had breast cancer, age 33. Risk Values: Sonal 5 year model risk: 1.5%. NCI Lifetime model risk: 4.3%. Prior Study Comparison: 12/16/2014 Right Diagnostic Mammogram, [facility]. 05/01/2016 Bilateral Screening Mammogram, [facility]. 07/13/2017 Bilateral Screening Mammogram, [facility]. 07/31/2018 Bilateral Screening Mammogram, [facility]. 03/19/2021 Bilateral Screening Mammogram, [facility]. Tissue Density: There are scattered fibroglandular densities. Findings: Analyzed By CAD. Subareolar nodularity on the left becomes less defined on the true lateral and does not clearly persist on 3 images. Microclip upper outer quadrant right breast from prior biopsy. Numerous scattered benign oil cyst calcifications are present. Further ultrasound evaluation for the patient's area of concern on the right areola. Overall Assessment: Incomplete: need additional imaging evaluation, BI-RAD 0 Management: Diagnostic Breast Ultrasound of the right breast. As ordered. Electronically signed and approved by: Karis Rios M.D. Radiologist
== END | disposition home or self-care (01) ==
LOC: RADMAMWWP 09:41
PROVIDERS: ATTEND Family Medicine
DX: N60.01 Solitary cyst of right breast (principal); Z78.0 Asymptomatic menopausal state; Z80.3 Family history of malignant neoplasm of breast; Z92.3 Personal history of irradiation; Z98.890 Other specified postprocedural states
CPT/HCPCS: 77066; 76642; G0279; 77062

== ENCOUNTER → 2022-06-04 | Outpatient (CLI) | payer MEDICARE ==
[2022-06-04 11:22] VITALS: BP 124/77; PULSE 82; RESP 17; TEMP 97.9
--- NOTE | 2022-06-04 11:49 | P.GSHP ---
History of Present Illness H&P Date: 06/04/22 Chief Complaint: Abnormal right breast ultrasound/possible intraductal papilloma Betsey is a 71-year-old white female seen in consultation for Dr. aGrcia who underwent a bilateral screening mammogram on82. This led to a recommendation for an ultrasound of the right breast. This was performed on the same date. The ultrasound revealed a nodular area by the right nipple areolar complex most likely consistent with an intraductal lesion possible papilloma. Core biopsy was recommended. The patient states she has felt a lump in her right breast near the nipple. This has been happening for about two years. She suffered a trauma with a dog scratch near this area prior to this occurring. She is not complaining of any other lumps masses or nodules of concern. In the past she has had a right breast biopsy which was benign via core needle sampling. Caffiene: 2 cups/day nicotine: none, stopped 1 1/2 years ago used to smoke fro 50 years chocolate: weekly BCP: none Family History: paternal cousin: breast cancer patient: lung cancer radiation and chemotherapy is having infusion therapy at this time/ Dr. Molina ([facility]) [phone] Dr. Molina Hormonal history: Menarche: 13 breast fed: no, age at first : 21 menopause: 51 hormones: none Surgical History: right breast biopsy cataract hysterectomy tubal ganglian cyst on wrist Medical History: immune therapy HTN high cholesterol patient on xeralto Social History: nicotine: as above alcohol: none drugs: none - Constitutional Constitutional: Reports sweats - EENT Eyes: bilateral as per HPI Ears: deny: decreased hearing, tinnitus Ears, nose, mouth and throat: Denies headache, Denies sore throat - Breasts Breasts: bilateral: as per HPI - Cardiovascular Comment: COPD - Respiratory Comment: former smoker COPD/ lung cancer - Gastrointestinal Gastrointestinal: Denies abdominal pain, Denies diarrhea, Denies nausea, Denies vomiting - Genitourinary (Female) Genitourinary: Denies dysuria, Denies hematuria - Menstruation Comment: 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 Menstruation: Reports post hysterectomy - Musculoskeletal Comment: wheel chair hard to walk and breathe Musculoskeletal: Reports myalgias - Integumentary Integumentary: Reports pruritus, Denies rash - Neurological Neurological: Reports numbness, Reports weakness - Psychiatric Psychiatric: Reports depression, Denies anxiety - Endocrine Endocrine: Reports fatigue - Hematologic/Lymphatic Comment: has had blood clots in 1970, DVT on xeralto - Allergic/Immunologic Allergic/Immunologic: Reports as per HPI Past Medical History Past Medical History: Cancer, COPD, CVA/TIA, Deep Vein Thrombosis (DVT), Hyperlipidemia, Hypertension Additional Past Medical History / Comment(s): hx of colon polyps, states mult DVT left leg, hx skin ca, current bronchitis, current Right lung Ca,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, on chemotherapy infusion History of Any Multi-Drug Resistant Organisms: None Reported Past Surgical History: Adenoidectomy, Hysterectomy, Tonsillectomy Additional Past Surgical History / Comment(s): bilateral cataract removal Past Anesthesia/Blood Transfusion Reactions: No Reported Reaction Past Psychological History: No Psychological Hx Reported Additional Psychological History / Comment(s): states wellbutrin for smoking cessation, cymbalta for menopausal symptoms Smoking Status: Former smoker Past Alcohol Use History: None Reported, Rare Additional Past Alcohol Use History / Comment(s): quit smoking October 2020 smoked 1ppd from age 16 Past Drug Use History: None Reported Additional Drug Use History / Comment(s): CBD gummies for pain - Past Family History Daughter(s) Family Medical History: Deep Vein Thrombosis (DVT) Medications and Allergies Home Medications Medication Instructions Recorded Confirmed Type DULoxetine HCL [Cymbalta] 60 mg PO QAM 09/02/17 06/04/22 History Losartan [Cozaar] 25 mg PO QAM 09/02/17 06/04/22 History Simvastatin [Zocor] 40 mg PO HS 09/02/17 06/04/22 History buPROPion HCL [Wellbutrin SR] 150 mg PO QAM 09/02/17 06/04/22 History Albuterol Nebulized [Ventolin 2.5 mg INHALATION BID PRN 03/23/21 06/04/22 Histor y Nebulized] Cholecalciferol [Vitamin D3 (25 1 tab PO DAILY 03/23/21 06/04/22 History Mcg = 1000 Iu)] Meloxicam 15 mg PO DAILY 03/23/21 06/04/22 History Omeprazole 20 mg PO DAILY 03/23/21 06/04/22 History Ubidecarenone [Co Q-10] 100 mg PO DAILY 03/23/21 06/04/22 History Umeclidinium Brm/Vilanterol Tr 1 puff INHALATION DAILY 03/23/21 06/04/22 History [Anoro Ellipta 62.5-25 Mcg INH] Cyclobenzaprine [Flexeril] 10 mg PO HS 06/03/22 06/04/22 History Levothyroxine Sodium [Synthroid] 88 mcg PO DAILY 06/03/22 06/04/22 History Rivaroxaban [Xarelto] 20 mg PO DAILY 06/03/22 06/04/22 History Allergies Allergy/AdvReac Type Severity Reaction Status Date / Time codeine Allergy headache Verified 06/04/22 11:15 Sulfa (Sulfonamide Allergy Migraine Verified 06/04/22 11:15 Antibiotics) headache Surgical - Exam Vital Signs Temp Pulse Resp BP Pulse Ox 97.9 F 82 17 124/77 97 06/04/22 11:20 06/04/22 11:20 06/04/22 11:20 06/04/22 11:20 06/04/22 11:20 BMI 42.1 - General no distress - Eyes normal ocular movement - ENT no hearing loss - Neck trachea midline - Respiratory normal respiratory effort, clear to auscultation - Cardiovascular Heart Sounds: normal: S1, S2 - Abdomen Abdomen: soft, non tender, no guarding, no rigid, no rebound - Integumentary normal turgor - Neurologic no disoriented, no combative - Musculoskeletal week in a wheel chair - Psychiatric oriented to time, oriented to person, oriented to place, speech is normal, memory intact Breast Exam: BRA: 44B inspection: bilateral grade 3 ptosis palpation: right breast examination with patient and wheelchair reveals nodularity posterior to the nipple areolar complex Right axilla: No adenopathy of concern Left breast: Examination wheelchair reveals fibrocystic changes no discrete julio nant masses or nodules of concern Left axilla: No adenopathy of concern Results Mammogram and ultrasound reviewed personally with Dr. Corona from radiology Assessment and Plan Assessment: Impression: immune therapy HTN high cholesterol patient on xeralto Nodularity right breast posterior to the nipple areolar complex depicted as well on ultrasound Patient has had some nipple discharge from this site as well Plan: Patient needs clearance from medical oncology as she is on immunotherapy for lung cancer and is presently on xeralto secondary to DVT she developed on chemotherapy to undergo a right breast ultrasound-guided core biopsy I have placed a call to Dr. Molina animal awaiting his return call Patient will be informed as to when we can do the biopsy Risk and benefits of the procedure discussed with the patient she is going to clear with Dr. Molina that she can have the procedure well she is on immunotherapy, and whether or not she can stop a multiple prior to the procedure. CC: Dr. Garcia
== END | disposition home or self-care (01) ==
LOC: WWCWWP 10:52
PROVIDERS: ATTEND Surgery
DX: N63.10 Unspecified lump in the right breast, unspecified quadrant (principal); I10 Essential (primary) hypertension; E78.00 Pure hypercholesterolemia, unspecified; Z79.899 Other long term (current) drug therapy; Z88.5 Allergy status to narcotic agent; Z88.2 Allergy status to sulfonamides; Z87.891 Personal history of nicotine dependence

== ENCOUNTER → 2022-06-15 | Day surgery (SDC) | payer MEDICARE ==
--- NOTE | 2022-06-28 12:12 | MM ---
Reason for Exam: Post Procedure Mammogram. Last screening mammogram was performed less than 1 month ago. Patient History: Menarche at age 13. First Full-Term at age 20. Left ovary removed at age 53. Right ovary removed at age 53. Hysterectomy at age 53. Postmenopausal. Other cancer, age 56. Previous chest radiation therapy. Previous chemotherapy. Benign Cyst Aspiration. 12/24/2014, Benign Core Biopsy on the right side. 05/24/2007, Attempted Procedure on the left side. 05/24/2007, Cancelled Left Mammotome on the left side. Paternal cousin had breast cancer, age 33. Risk Values: Sonal 5 year model risk: 1.5%. NCI Lifetime model risk: 4.3%. Prior Study Comparison: 07/31/2018 Bilateral Screening Mammogram, [facility]. 03/19/2021 Bilateral Screening Mammogram, [facility]. 06/03/2022 Bilateral MG 3D diag mammo w/cad SRIK[facility], [facility]. Tissue Density: Right: There are scattered fibroglandular densities. Pathology Description: Location: retroareolar. Marker Left Behind. Needle Type: Mammotome Cores: 4 Gauge: 13 The procedure of ultrasound guided core biopsy was explained to the patient. Benefits, alternatives, and risks were discussed. An informed consent was then obtained. Upon review of today's ultrasound images there appears to be 2 adjacent similar appearing hypoechoic ovoid lesions in the right breast in the retroareolar region with the largest previously seen on prior ultrasound. The largest measures 0.8 x 0.3 x 0.7 cm and the smaller lesion measures 0.3 x 0.4 x 0.3 cm. The patient was placed in supine positioning for imaging and for the procedure. The overlying skin was prepped and draped in usual sterile fashion. Lidocaine buffered with epinephrine was used as anesthetic into the skin and subcutaneous tissue up to area of concern in the right breast. Under ultrasound guidance, a 12-gauge vacuum assisted biopsy gun device was used to obtain 4 core samples. I biopsied the larger lesion with attempted extension of the biopsy gun into the smaller lesion. Following this, a biopsy clip was left in lesion. The patient tolerated the procedure well without any immediate complication. The patient was kept in the radiology department for short stay after the procedure and then discharged home in stable condition. Postprocedure mammogram: The patient was transferred to mammography for physician ordered post procedure mammogram for clip placement verification. Post mammogram of the right breast demonstrates a coil clip in satisfactory position in the retroareolar region. Impression: Successful, uncomplicated ultrasound guided core biopsy of area of concern in the right breast, full pathology results to follow. Pathology Results: Result: Benign, Fat necrosis. RIGHT BREAST NIPPLE, ULTRASOUND GUIDED NEEDLE CORE BIOPSY: Scar/fibrosis and fat necrosis with acute and chronic inflammation. Negative for malignancy. Overall Assessment: Benign Assessment: MG diagnostic mammo RT wo CAD - Right: Benign, BI-RAD 2. Management: Diagnostic Breast Ultrasound of the right breast in 6 months. Electronically signed and approved by: Holland Kohli D.O.
== END ==
LOC: RADUSWWP 12:37
PROVIDERS: ATTEND Surgery
DX: C34.91 Malignant neoplasm of unspecified part of right bronchus or lung (principal); R92.8 Other abnormal and inconclusive findings on diagnostic imaging of breast
CPT/HCPCS: 88305; 77065; 19083; A4648

== ENCOUNTER → 2022-07-02 | Outpatient (CLI) | payer MEDICARE ==
[2022-07-02 10:22] VITALS: BP 115/67; PULSE 88; RESP 17; TEMP 97.9
--- NOTE | 2022-07-02 10:59 | P.PN ---
Subjective Progress Note Date: 07/02/22 Betsey is a 71 year old white female status post right breast ultrasound guided biopsy on 06-15-22. The pathology was benign. Revealed scar/fibrosis and fat necrosis. She tolerated the procedure without difficulty. Objective - Vital Signs Vital signs: Vital Signs Temp 97.9 F 07/02/22 10:21 Pulse 88 07/02/22 10:21 Resp 17 07/02/22 10:21 BP 115/67 07/02/22 10:21 Pulse Ox 95 07/02/22 10:21 FiO2 Intake & Output 07/01/22 07/02/22 07/02/22 18:59 06:59 18:59 Weight 104.326 kg - Constitutional General appearance: Present: cooperative - EENT Eyes: Present: EOMI - Neck Neck: Present: normal ROM - Respiratory Respiratory: bilateral: CTA - Cardiovascular Heart sounds: normal: S1, S2 - Integumentary Integumentary Comment(s): Biopsy site right breast clean and dry, no evidence of infection or hematoma Integumentary: Present: normal turgor - Psychiatric Psychiatric: Present: A&O x's 3, appropriate affect, intact judgment & insight - Additional findings Additional findings: examination of the right breast reveals no nodularity of concern in the right posterior nipple areolar region the patient states she does not feel anything of concern at that site either Assessment and Plan Assessment: Impression: She has completed immune therapy for lung cancer will have a CAT scan in the near future Hypertension High cholesterol Patient is presently on sotalol toe Nodularity right breast posterior to the nipple areolar complex has resolved since her core biopsy Core biopsy benign Plan: At this time we will follow the patient's breast conservatively with a repeat ultrasound in 6 months I will see the patient in 6 months she has any questions or concerns I will see her sooner Cc: Dr. Garcia
== END ==
LOC: WWCWWP 09:50
PROVIDERS: ATTEND Surgery
DX: R92.8 Other abnormal and inconclusive findings on diagnostic imaging of breast (principal); Z88.5 Allergy status to narcotic agent; Z88.2 Allergy status to sulfonamides; Z87.891 Personal history of nicotine dependence

== ENCOUNTER 2022-11-03 09:14 | Day surgery (SDC) | payer MEDICARE ==
[2022-11-02 09:07] VITALS: BMI 45.8
[~2022-11-03 09:14] MED LIST changes: -DEXAMETHASONE SOD PHOSPHATE 10 MG/ML 1 ML VIAL IV ONE; -ONDANSETRON 4 MG/2 ML VIAL IVP ONE
[2022-11-03 10:23] VITALS: TEMP 97.9
[2022-11-03] MEDS ORDERED: PROPOFOL 10 MG/ML 20 ML VIAL IV ONE (10:53)
--- NOTE | 2022-11-03 11:30 | P.PCN ---
Date of Procedure: 11/03/22 Procedure(s) Performed: BRIEF HISTORY: Patient is a 72-year-old pleasant white female scheduled for an elective colonoscopy as a part of evaluation of prior history of colon polyps. Last colonoscopy was 5 years ago. PROCEDURE PERFORMED: Colonoscopy with biopsy. PREOPERATIVE DIAGNOSIS: History of colon polyps. IV sedation per Anesthesia. PROCEDURE: After informed consent was obtained, the patient, was brought into the endoscopy unit. IV sedation was administered by Anesthesia under continuous monitoring. Digital rectal examination was normal. Initially the Olympus CF-160 flexible video colonoscope was then inserted in the rectum, gradually advanced into the cecum without any difficulty. Careful examination was performed as the scope was gradually being withdrawn. Ileocecal valve and the appendiceal orifice were visualized and appeared normal. Prep was poor and several areas of the colon. Thorough irrigation was performed.. Mucosa of the cecum, ascending colon, transverse colon, descending colon, sigmoid colon, and rectum appeared normal. In the rectum there was a 5 limited polyp that was removed by cold biopsy. Retroflexion was performed in the rectum and no lesions were seen. The patient tolerated the procedure well. IMPRESSION: 5 mm rectal polyp status post cold biopsy Poor prep in several areas of the colon RECOMMENDATIONS: Findings of this examination were discussed with the patient is well as her family. She was advised to follow with the biopsy results. Recommend repeat colonoscopy in 5 years..
[2022-11-03 12:34] VITALS: BP 139/88; PULSE 80; RESP 20
== END 2022-11-03 12:35 | disposition home or self-care (01) ==
LOC: ORWHC2ENDO 09:14
PROVIDERS: ATTEND Internal Medicine Gastroenterology
DX: Z12.11 Encounter for screening for malignant neoplasm of colon (principal); K62.1 Rectal polyp; I10 Essential (primary) hypertension; E78.5 Hyperlipidemia, unspecified; J44.9 Chronic obstructive pulmonary disease, unspecified; F12.90 Cannabis use, unspecified, uncomplicated; E03.9 Hypothyroidism, unspecified; K21.9 Gastro-esophageal reflux disease without esophagitis; Z86.718 Personal history of other venous thrombosis and embolism; Z86.73 Personal history of transient ischemic attack (TIA), and cerebral infarction without residual deficits; Z85.118 Personal history of other malignant neoplasm of bronchus and lung; Z88.2 Allergy status to sulfonamides; Z88.5 Allergy status to narcotic agent; Z79.01 Long term (current) use of anticoagulants; Z79.51 Long term (current) use of inhaled steroids; Z79.890 Hormone replacement therapy; Z79.899 Other long term (current) drug therapy
CPT/HCPCS: 88305; 45380; J2704

== ENCOUNTER → 2022-12-06 | Outpatient (CLI) | payer MEDICARE ==
--- NOTE | 2022-12-07 17:56 | CT ---
EXAMINATION TYPE: CT ChestAbdPelvis w con DATE OF EXAM: 12/06/2022 INDICATION: Follow up for lung cancer. COMPARISON: 09/03/2022 CT DLP: 2468.6 mGycm CONTRAST: Performed with Oral Contrast and with IV Contrast, patient injected with 100ml mL of Isovue 300. TECHNIQUE: Axial images at 5 mm thick sections. Reconstructed images in the coronal plane. Delayed images through the kidneys. FINDINGS: CT CHEST: Portion of the thyroid visualized is normal. There is a 4.7 x 4.1 cm mass in the posterior medial right lung base. This appears stable. Previous m easurement 4.8 x 3.6 No enlarged mediastinal or hilar adenopathy is evident. The ascending aorta diameter at the level of the main pulmonary artery is 4.3 cm. The main pulmonary artery diameter at the bifurcation is 2.[address] ABDOMEN: Liver: Normal Spleen: Normal Pancreas: Normal Adrenal glands: The adrenal glands are normal. Gallbladder: Normal Kidneys: No masses are evident. No hydronephrosis is present. No cysts are present. Aorta: Vascular calcification is within the aorta. 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 This terminates above the bifurcation and begins below the level of the renal arteries. Thi s was present previously and appears stable. Inferior vena cava: Normal. CT PELVIS: Loops of bowel within the abdomen and pelvis are normal. There are loops of bowel which are incom pletely distended or lack oral contrast limiting their evaluation. Appendix: Normal as visualized. Urinary bladder: Normal. Genitourinary structures: Uterus and ovaries are not identified Osseous structures: No suspicious lytic or sclerotic lesions. Facet degenerative changes are in the l ower lumbar spine IMPRESSIONS: 1. Persistent posterior right lung mass
== END | disposition home or self-care (01) ==
LOC: RADCTMAIN 09:34
PROVIDERS: ATTEND Internal Medicine Hematology & Oncology
DX: C34.32 Malignant neoplasm of lower lobe, left bronchus or lung (principal); R91.8 Other nonspecific abnormal finding of lung field
CPT/HCPCS: 71260; 74177; 36415; Q9967

== ENCOUNTER → 2022-12-16 | Outpatient (CLI) | payer MEDICARE ==
[2022-12-06 10:37] LABS: Anisocytosis Slight; HCT 33.7 % (34.0-46.0); HGB 9.9 gm/dL (11.4-16.0); Hypochromasia Marked; MCH 24.4 pg (25.0-35.0); MCHC 29.5 g/dL (31.0-37.0); MCV 82.8 fL (80.0-100.0); Mean Platelet Volume 7.2; Platelet Count 315 k/uL (150-450); RBC 4.07 m/uL (3.80-5.40); RDW 16.9 % (11.5-15.5); WBC 7.5 k/uL (3.8-10.6)
[2022-12-06 10:45] LABS: ALT 17 U/L (4-34); AST 25 U/L (14-36); African American GFR (CKD) >90 (>60 ml/min/1.73 sqM); Albumin 4.1 g/dL (3.5-5.0); Albumin/Globulin Ratio 1.2; Alkaline Phosphatase 102 U/L (38-126); Anion Gap 8 mmol/L; Blood Urea Nitrogen 11 mg/dL (7-17); Calcium 8.7 mg/dL (8.4-10.2); Carbon Dioxide 29 mmol/L (22-30); Chloride 99 mmol/L (98-107); Globulin 3.3 g/dL; Glucose 124 mg/dL (74-99); Non-African American GFR(CKD) 88 (>60 ml/min/1.73 sqM); Potassium 5.1 mmol/L (3.5-5.1); Sodium 136 mmol/L (137-145); Total Bilirubin 0.3 mg/dL (0.2-1.3); Total Protein 7.4 g/dL (6.3-8.2)
--- NOTE | 2022-12-16 09:29 | USB ---
Reason for Exam: Follow-up at short interval from prior study. Patient History: Menarche at age 13. First Full-Term at age 20. Left ovary removed at age 53. Right ovary removed at age 53. Hysterectomy at age 53. Postmenopausal. Other cancer, age 56. Previous chest radiation therapy. Previous chemotherapy. 06/15/2022, Benign US biopsy breast VAD RT on the right side. Benign Cyst Aspiration. 12/24/2014, Benign Core Biopsy on the right side. 05/24/2007, Attempted Procedure on the left side. 05/24/2007, Cancelled Left Mammotome on the left side. Paternal cousin had breast cancer, age 33. Risk Values: Sonal 5 year model risk: 1.9%. NCI Lifetime model risk: 5.2%. Prior Study Comparison: 03/19/2021 Bilateral Screening Mammogram, [facility]. 06/03/2022 Bilateral MG 3D diag mammo w/cad [facility], [facility]. 06/03/2022 Right US breast limited RT, [facility]. 06/15/2022 Right MG diagnostic mammo RT wo CAD, [facility]. Findings: Targeted subareolar and periareolar ultrasound as well as imaging of the axilla. The previous elongated hypoechoic area behind the nipple is no longer seen. In its place, there is a HydroMark clip. No solid or cystic lesion. Overall Assessment: Benign, BI-RAD 2 Management: Screening Mammogram of both breasts in 6 months. A clinical breast exam by your physician is recommended on an annual basis and results should be correlated with mammographic findings. This exam should not preclude additional follow-up of suspicious palpable abnormalities. Results were given to the patient verbally at the time of exam. Electronically signed and approved by: Karis Rios M.D. Radiologist
== END | disposition home or self-care (01) ==
LOC: RADUSWWP 08:58
PROVIDERS: ATTEND Surgery
DX: R92.8 Other abnormal and inconclusive findings on diagnostic imaging of breast (principal); Z78.0 Asymptomatic menopausal state; Z80.3 Family history of malignant neoplasm of breast
CPT/HCPCS: 80053; 82728; 83540; 83550; 85027

== ENCOUNTER → 2022-12-23 | Outpatient (CLI) | payer MEDICARE ==
[2022-12-23 12:56] VITALS: BP 115/79; PULSE 90; RESP 18; TEMP 98.5
--- NOTE | 2022-12-23 13:19 | P.PN ---
Subjective Progress Note Date: 12/23/22 Betsey is a 71-year-old white female seen in consultation for Dr. Garcia who underwent a bilateral screening mammogram on. This led to a recommendation for an ultrasound of the right breast. This was performed on the same date. The ultrasound revealed a nodular area by the right nipple areolar complex most likely consistent with an intraductal lesion possible papilloma. Core biopsy was recommended. The patient states she has felt a lump in her right breast near the nipple. This has been happening for about two years. She suffered a trauma with a dog scratch near this area prior to this occurring. She is not complaining of any other lumps masses or nodules of concern. In the past she has had a right breast biopsy which was benign via core needle sampling. 12-23-22 right breast ultrasound on 12-16-22 BIRAD 2, patient status post right breast ultrasound guided core biopsy on 07-02-22 benign concordant. She is not complaining of any new lumps masses or nodules of concern in either breast. She is complaining of some intermittent right upper quadrant tenderness. It is not worse with eating. She has had right lung cancer approximately 2 years ago she was treated with radiation and chemotherapy and is following with Dr. Molina at this time. She did not have any surgery for this. Caffiene: 2 cups/day nicotine: none, stopped 1 1/2 years ago used to smoke fro 50 years chocolate: weekly BCP: none Family History: paternal cousin: breast cancer patient: lung cancer radiation and chemotherapy is having infusion therapy at this time/ Dr. Molina ([facility]) [phone] Dr. Molina Hormonal history: Menarche: 13 breast fed: no, age at first : 21 menopause: 51 hormones: none Surgical History: right breast biopsy cataract hysterectomy tubal ganglian cyst on wrist Medical History: immune therapy HTN high cholesterol patient on xeralto Social History: nicotine: as above alcohol: none drugs: none - Constitutional Constitutional: Reports sweats - EENT Eyes: bilateral as per HPI Ears: deny: decreased hearing, tinnitus Ears, nose, mouth and throat: Denies headache, Denies sore throat - Breasts Breasts: bilateral: as per HPI - Cardiovascular Comment: COPD - Respiratory Comment: former smoker COPD/ lung cancer - Gastrointestinal Gastrointestinal: Denies abdominal pain, Denies diarrhea, Denies nausea, Denies vomiting - Genitourinary (Female) Genitourinary: Denies dysuria, Denies hematuria - Menstruation Comment: 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 Menstruation: Reports post hysterectomy - Musculoskeletal Comment: wheel chair hard to walk and breathe Musculoskeletal: Reports myalgias - Integumentary Integumentary: Reports pruritus, Denies rash - Neurological Neurological: Reports numbness, Reports weakness - Psychiatric Psychiatric: Reports depression, Denies anxiety - Endocrine Endocrine: Reports fatigue - Hematologic/Lymphatic Comment: has had blood clots in 1970, DVT on xeralto - Allergic/Immunologic Allergic/Immunologic: Reports as per HPI Past Medical History Past Medical History: Cancer, COPD, CVA/TIA, Deep Vein Thrombosis (DVT), Hyperlipidemia, Hypertension Additional Past Medical History / Comment(s): hx of colon polyps, states mult DVT left leg, hx skin ca, current bronchitis, current Right lung Ca,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, on chemotherapy infusion History of Any Multi-Drug Resistant Organisms: None Reported Past Surgical History: Adenoidectomy, Hysterectomy, Tonsillectomy Additional Past Surgical History / Comment(s): bilateral cataract removal Past Anesthesia/Blood Transfusion Reactions: No Reported Reaction Past Psychological History: No Psychological Hx Reported Additional Psychological History / Comment(s): states wellbutrin for smoking cessation, cymbalta for menopausal symptoms Smoking Status: Former smoker Past Alcohol Use History: None Reported, Rare Additional Past Alcohol Use History / Comment(s): quit smoking October 2020 smoked 1ppd from age 16 Past Drug Use History: None Reported Additional Drug Use History / Comment(s): CBD gummies for pain - Past Family History Daughter(s) Family Medical History: Deep Vein Thrombosis (DVT) Medications and Allergies Home Medications Medication Instructions Recorded Confirmed Type DULoxetine HCL [Cymbalta] 60 mg PO QAM 09/02/17 06/04/22 History Losartan [Cozaar] 25 mg PO QAM 09/02/17 06/04/22 History Simvastatin [Zocor] 40 mg PO HS 09/02/17 06/04/22 History buPROPion HCL [Wellbutrin SR] 150 mg PO QAM 09/02/17 06/04/22 History Albuterol Nebulized [Ventolin 2.5 mg INHALATION BID PRN 03/23/21 06/04/22 History Nebulized] Cholecalciferol [Vitamin D3 (25 1 tab PO DAILY 03/23/21 06/04/22 History Mcg = 1000 Iu)] Meloxicam 15 mg PO DAILY 03/23/21 06/04/22 History Omeprazole 20 mg PO DAILY 03/23/21 06/04/22 History Ubidecarenone [Co Q-10] 100 mg PO DAILY 03/23/21 06/04/22 History Umeclidinium Brm/Vilanterol Tr 1 puff INHALATION DAILY 03/23/21 06/04/22 History [Anoro Ellipta 62.5-25 Mcg INH] Cyclobenzaprine [Flexeril] 10 mg PO HS 06/03/22 06/04/22 History Levothyroxine Sodium [Synthroid] 88 mcg PO DAILY 06/03/22 06/04/22 History Rivaroxaban [Xarelto] 20 mg PO DAILY 06/03/22 06/04/22 History Allergies Allergy/AdvReac Type Severity Reaction Status Date / Time codeine Allergy headache Verified 06/04/22 11:15 Sulfa (Sulfonamide Allergy Migraine Verified 06/04/22 11:15 Antibiotics) headache Objective - Vital Signs Vital signs: Vital Signs Temp 98.5 F 12/23/22 12:53 Pulse 90 12/23/22 12:53 Resp 18 12/23/22 12:53 BP 115/79 12/23/22 12:53 Pulse Ox 91 L 12/23/22 12:53 FiO2 Intake & Output 12/22/22 12/23/22 12/23/22 18:59 06:59 18:59 Weight 106.594 kg - Constitutional General appearance: Present: cooperative - EENT Eyes: Present: EOMI ENT: Present: hearing grossly normal - Neck Neck: Present: normal ROM - Respiratory Respiratory: bilateral: CTA - Cardiovascular Heart sounds: normal: S1, S2 - Gastrointestinal General gastrointestinal: Present: soft - Integumentary Integumentary: Present: normal turgor - Musculoskeletal Musculoskeletal Comment(s): wheel chair dependant - Additional findings Additional findings: Breast Exam: BRA: 44B inspection: bilateral grade 3 ptosis palpation: right breast examination with patient sitting nodularity previously felt posterior to the right nipple areolar complex seems to have resolved no dominant masses or nodules of concern Right axilla: No adenopathy of concern Left breast: fibrocystic changes no discrete dominant masses or nodules of concern Left axilla: No adenopathy of concern Assessment and Plan Assessment: mpression: immune therapy HTN high cholesterol patient on xeralto Nodularity right breast posterior to the nipple areolar complex depicted as well on ultrasound/ core biopsy 06-15-22 benign concordant ultrasound right bresat 12-16-22 BIRAD 2 Right lung cancer was treated with radiation and chemotherapy/immunotherapy approximately 2 years ago anemia Plan: continue to follow with medical oncology Bilateral mammogram 6 months with appointment at that time CC: Dr. Garcia
== END ==
LOC: WWCWWP 12:45
PROVIDERS: ATTEND Surgery
DX: C34.91 Malignant neoplasm of unspecified part of right bronchus or lung (principal); N63.10 Unspecified lump in the right breast, unspecified quadrant; N64.89 Other specified disorders of breast; I10 Essential (primary) hypertension; E78.00 Pure hypercholesterolemia, unspecified; D64.9 Anemia, unspecified; J44.9 Chronic obstructive pulmonary disease, unspecified; Z86.73 Personal history of transient ischemic attack (TIA), and cerebral infarction without residual deficits; Z86.718 Personal history of other venous thrombosis and embolism; Z90.710 Acquired absence of both cervix and uterus; Z92.3 Personal history of irradiation; Z80.3 Family history of malignant neoplasm of breast; Z88.2 Allergy status to sulfonamides; Z88.5 Allergy status to narcotic agent; Z87.891 Personal history of nicotine dependence; Z79.51 Long term (current) use of inhaled steroids; Z87.19 Personal history of other diseases of the digestive system; Z85.118 Personal history of other malignant neoplasm of bronchus and lung; Z79.1 Long term (current) use of non-steroidal anti-inflammatories (NSAID); Z79.01 Long term (current) use of anticoagulants; Z85.828 Personal history of other malignant neoplasm of skin

== ENCOUNTER → 2023-05-02 | Outpatient (CLI) | payer MEDICARE ==
[2023-05-02 11:19] LABS: African American GFR (CKD) >90 (>60 ml/min/1.73 sqM); Blood Urea Nitrogen 19 mg/dL (7-17); Non-African American GFR(CKD) 83 (>60 ml/min/1.73 sqM)
--- NOTE | 2023-05-02 12:54 | CT ---
EXAMINATION TYPE: CT ChestAbdPelvis w con CT DLP: 1744 mGycm, Automated exposure control for dose reduction was used. DATE OF EXAM: 05/02/2023 11:59 AM COMPARISON: 12/06/2022. PET/CT 04/10/2021 CLINICAL INDICATION:Female, 72 years old with history of C34.31 lung c, Hx lung ca, routine follow up Technique: Multiple axial images of the chest, abdomen, and pelvis were obtained. Two-dimensional cor onal and sagittal reconstructions were obtained. Contrast used:100 mL of Isovue 300 with IV Contrast, Oral contrast used: with Oral Contrast Findings: CHEST: LUNGS/ PLEURA: Read demonstration of right medial lower lung mass measuring 3.8 x 3.3 cm previously 4 .1 x 3.4 cm. No new or enlarging pulmonary nodules identified. Scattered reticular peripheral opaciti es in present throughout the lungs. AIRWAY: Patent and unremarkable. HEART: Size within normal limits. Atherosclerosis of the coronary arteries. MEDIASTINUM: Right subcarinal lymph node appears larger on today's exam measuring 14 mm in short axis , previously 9 mm. VASCULATURE: No aortic aneurysm. MUSCULOSKELETAL: Remote fractures with non union of right ribs 7 through 9. SOFT TISSUES/LYMPH NODES: Unremarkable. LOWER NECK: No significant findings. ABDOMEN: ABDOMEN LIVER: Unremarkable GALLBLADDER AND BILE DUCTS: Unremarkable. PANCREAS: Unremarkable. SPLEEN: Unremarkable. ADRENAL GLANDS: Unremarkable. KIDNEYS AND URETERS: No evidence of hydronephrosis or renal calculus. The ureters are unremarkable. PELVIS BLADDER: Unremarkable REPRODUCTIVE: Unremarkable. ABDOMEN & PELVIS STOMACH AND BOWEL: No evidence of bowel obstruction. The appendix is normal. PERITONEUM: No evidence of pneumoperitoneum or free fluid. VASCULATURE: Infrarenal abdominal fusiform aorta aneurysm measuring up to 4.4 x 4.0 with some mural t hrombus present. This is just before the bifurcation. Multiple collaterals are projecting over the mo ns pubis. MUSCULOSKELETAL: No acute osseous abnormalities, multilevel degeneration changes of the spine with gr elaine 1 anterolisthesis of L4 and L5. No spondylolysis. Scattered neural foraminal stenosis. LYMPH NODES: No gross evidence for lymphadenopathy. SOFT TISSUE/ABDOMINAL WALL: Fat-containing umbilical hernia. IMPRESSION: 1. Right lower medial lung mass which is minimally decreased in size compared to 12/06/2022. A right subcarinal lymph node appears enlarged compared to prior concerning for metastatic disease. Consider PET/CT for further evaluation. 2. No lymphadenopathy identified within the abdomen or pelvis. 3. Infrarenal abdominal aorta aneurysm measuring up to 4.4 x 4.0 cm.
== END | disposition home or self-care (01) ==
LOC: RADCTMAIN 09:21
PROVIDERS: ATTEND Internal Medicine Hematology & Oncology
DX: C34.31 Malignant neoplasm of lower lobe, right bronchus or lung (principal); D50.9 Iron deficiency anemia, unspecified; E03.8 Other specified hypothyroidism; I71.43 Infrarenal abdominal aortic aneurysm, without rupture; I26.99 Other pulmonary embolism without acute cor pulmonale; I10 Essential (primary) hypertension; E78.5 Hyperlipidemia, unspecified; I82.5Z9 Chronic embolism and thrombosis of unspecified deep veins of unspecified distal lower extremity; R91.8 Other nonspecific abnormal finding of lung field; Z71.3 Dietary counseling and surveillance
CPT/HCPCS: 82565; 84520; 71260; 74177; 36415; Q9967

== ENCOUNTER → 2023-06-24 | Outpatient (CLI) | payer MEDICARE ==
--- NOTE | 2023-06-24 14:24 | MM ---
Reason for Exam: Screening (asymptomatic). Last screening mammogram was performed 12 month(s) ago. Patient History: Menarche at age 13. First Full-Term at age 20. Left ovary removed at age 53. Right ovary removed at age 53. Hysterectomy at age 53. Postmenopausal. Other cancer, age 56. Previous chest radiation therapy. Previous chemotherapy. 06/15/2022, Benign US biopsy breast VAD RT on the right side. Benign Cyst Aspiration. 12/24/2014, Benign Core Biopsy on the right side. 05/24/2007, Attempted Procedure on the left side. 05/24/2007, Cancelled Left Mammotome on the left side. Paternal cousin had breast cancer, age 33. Risk Values: Sonal 5 year model risk: 1.9%. NCI Lifetime model risk: 5.2%. Prior Study Comparison: 03/19/2021 Bilateral Screening Mammogram, [facility]. 06/03/2022 Bilateral MG 3D diag mammo w/cad [facility], [facility]. 06/15/2022 Right MG diagnostic mammo RT wo CAD, [facility]. Tissue Density: There are scattered fibroglandular densities. Findings: Analyzed By CAD. Right breast biopsy clip. There is no suspicious group of microcalcifications or new suspicious mass. Overall Assessment: Benign, BI-RAD 2 Management: Screening Mammogram of both breasts in [address] [facility] will attempt to contact patient to return for supplemental views and ultrasound if indicated. Patient should continue monthly self-breast exams. A clinical breast exam by your physician is recommended on an annual basis. This exam should not preclude additional follow-up of suspicious palpable abnormalities. Note on Sonal scores and lifetime risk: 1. A Sonal score greater than 3% is considered moderate risk. If this is the case, consider specialist referral to assess eligibility for a risk reducing agent. 2. If overall lifetime risk for the development of breast cancer is 20% or higher, the patient may qualify for future screening with alternating mammogram and breast MRI. Electronically signed and approved by: Theodore Stephens DO
== END | disposition home or self-care (01) ==
LOC: RADMAMWWP 09:09
PROVIDERS: ATTEND Surgery
DX: Z12.31 Encounter for screening mammogram for malignant neoplasm of breast (principal); Z80.3 Family history of malignant neoplasm of breast; Z78.0 Asymptomatic menopausal state
CPT/HCPCS: 77063; 77067

== ENCOUNTER → 2023-07-01 | Outpatient (CLI) | payer MEDICARE ==
[2023-07-01 10:43] VITALS: BP 124/78; PULSE 65; RESP 18; TEMP 97.8
--- NOTE | 2023-07-01 10:47 | P.PN ---
Subjective Progress Note Date: 07/01/23 Principal diagnosis: fibrocystic breast changes/lung cancer 12/23/22 Betsey is a 71-year-old white female seen in consultation for Dr. Garcia who underwent a bilateral screening mammogram on. This led to a recommendation for an ultrasound of the right breast. This was performed on the same date. The ultrasound revealed a nodular area by the right nipple areolar complex most likely consistent with an intraductal lesion possible papilloma. Core biopsy was recommended. The patient states she has felt a lump in her right breast near the nipple. This has been happening for about two years. She suffered a trauma with a dog scratch near this area prior to this occurring. She is not complaining of any other lumps masses or nodules of concern. In the past she has had a right breast biopsy which was benign via core needle sampling. 12-23-22 right breast ultrasound on 12-16-22 BIRAD 2, patient status post right breast ultrasound guided core biopsy on 07-02-22 benign concordant. She is not complaining of any new lumps masses or nodules of concern in either breast. She is complaining of some intermittent right upper quadrant tenderness. It is not worse with eating. She has had right lung cancer approximately 2 years ago she was treated with radiation and chemotherapy and is following with Dr. Molina at this time. She did not have any surgery for this. 07-01-23 bilateral mammogram on 06-24-23 BIRAD 2; not complaining of any new lumps masses or nodules of concern in either breast She is in remission related to her lung cancer; she is not taking any therapy at this time; he gets CAT scans every 3 months Caffiene: 2 cups/day nicotine: none, stopped 1 1/2 years ago used to smoke for 50 years chocolate: weekly BCP: none Family History: paternal cousin: breast cancer patient: lung cancer radiation and chemotherapy is having infusion therapy at this time/ Dr. Molina ([facility]) [phone] Dr. Molina Hormonal history: Menarche: 13 breast fed: no, age at first : 21 menopause: 51 hormones: none Surgical History: right breast biopsy cataract hysterectomy tubal ganglion cyst on wrist Medical History: immune therapy HTN high cholesterol patient on xeralto lung cancer in remission history of anemia; followed with medical oncology Social History: nicotine: as above alcohol: none drugs: none - Constitutional Constitutional: Reports sweats - EENT Eyes: bilateral as per HPI Ears: deny: decreased hearing, tinnitus Ears, nose, mouth and throat: Denies headache, Denies sore throat - Breasts Breasts: bilateral: as per HPI - Cardiovascular Comment: COPD - Respiratory Comment: former smoker COPD/ lung cancer - Gastrointestinal Gastrointestinal: Denies abdominal pain, Denies diarrhea, Denies nausea, Denies vomiting - Genitourinary (Female) Genitourinary: Denies dysuria, Denies hematuria - Menstruation Comment: 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 Menstruation: Reports post hysterectomy - Musculoskeletal Comment: wheel chair hard to walk and breathe Musculoskeletal: Reports myalgias - Integumentary Integumentary: Reports pruritus, Denies rash - Neurological Neurological: Reports numbness, Reports weakness - Psychiatric Psychiatric: Reports depression, Denies anxiety - Endocrine Endocrine: Reports fatigue - Hematologic/Lymphatic Comment: has had blood clots in 1970, DVT on xeralto - Allergic/Immunologic Allergic/Immunologic: Reports as per HPI Past Medical History Past Medical History: Cancer, COPD, CVA/TIA, Deep Vein Thrombosis (DVT), Hyperlipidemia, Hypertension Additional Past Medical History / Comment(s): hx of colon polyps, states mult DVT left leg, hx skin ca, current bronchitis, current Right lung Ca,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, on chemotherapy infusion History of Any Multi-Drug Resistant Organisms: None Reported Past Surgical History: Adenoidectomy, Hysterectomy, Tonsillectomy Additional Past Surgical History / Comment(s): bilateral cataract removal Past Anesthesia/Blood Transfusion Reactions: No Reported Reaction Past Psychological History: No Psychological Hx Reported Additional Psychological History / Comment(s): states wellbutrin for smoking c essation, cymbalta for menopausal symptoms Smoking Status: Former smoker Past Alcohol Use History: None Reported, Rare Additional Past Alcohol Use History / Comment(s): quit smoking October 2020 smoked 1ppd from age 16 Past Drug Use History: None Reported Additional Drug Use History / Comment(s): CBD gummies for pain - Past Family History Daughter(s) Family Medical History: Deep Vein Thrombosis (DVT) Medications and Allergies Home Medications Medication Instructions Recorded Confirmed Type DULoxetine HCL [Cymbalta] 60 mg PO QAM 09/02/17 06/04/22 History Losartan [Cozaar] 25 mg PO QAM 09/02/17 06/04/22 History Simvastatin [Zocor] 40 mg PO HS 09/02/17 06/04/22 History buPROPion HCL [Wellbutrin SR] 150 mg PO QAM 09/02/17 06/04/22 History Albuterol Nebulized [Ventolin 2.5 mg INHALATION BID PRN 03/23/21 06/04/22 History Nebulized] Cholecalciferol [Vitamin D3 (25 1 tab PO DAILY 03/23/21 06/04/22 History Mcg = 1000 Iu)] Meloxicam 15 mg PO DAILY 03/23/21 06/04/22 History Omeprazole 20 mg PO DAILY 03/23/21 06/04/22 History Ubidecarenone [Co Q-10] 100 mg PO DAILY 03/23/21 06/04/22 History Umeclidinium Brm/Vilanterol Tr 1 puff INHALATION DAILY 03/23/21 06/04/22 History [Anoro Ellipta 62.5-25 Mcg INH] Cyclobenzaprine [Flexeril] 10 mg PO HS 06/03/22 06/04/22 History Levothyroxine Sodium [Synthroid] 88 mcg PO DAILY 06/03/22 06/04/22 History Rivaroxaban [Xarelto] 20 mg PO DAILY 06/03/22 06/04/22 History Allergies Allergy/AdvReac Type Severity Reaction Status Date / Time codeine Allergy headache Verified 06/04/22 11:15 Sulfa (Sulfonamide Allergy Migraine Verified 06/04/22 11:15 Antibiotics) headache Objective - Vital Signs Vital signs: Vital Signs Temp 97.8 F 07/01/23 10:32 Pulse 65 07/01/23 10:32 Resp 18 07/01/23 10:32 BP 124/78 07/01/23 10:32 Pulse Ox 94 L 07/01/23 10:32 FiO2 Intake & Output 06/30/23 07/01/23 07/01/23 18:59 06:59 18:59 Weight 106.594 kg - Constitutional General appearance: Present: cooperative - EENT Eyes: Present: EOMI ENT: Present: hearing grossly normal - Neck Neck: Present: normal ROM - Respiratory Respiratory: bilateral: CTA - Cardiovascular Heart sounds: normal: S1, S2 - Integumentary Integumentary: Present: normal turgor - Musculoskeletal Musculoskeletal Comment(s): uses a cane - Psychiatric Psychiatric: Present: A&O x's 3, appropriate affect, intact judgment & insight - Additional findings Additional findings: Breast Exam: BRA: 44B inspection: bilateral grade 3 ptosis palpation: right breast: Multi-positional exam no dominant masses or nodules of concern Right axilla: No adenopathy of concern Left breast: fibrocystic changes no discrete dominant masses or nodules of concern Left axilla: No adenopathy of concern Assessment and Plan Assessment: Impression: immune therapy completed for lung cancer HTN high cholesterol patient on xeralto Nodularity right breast posterior to the periareolar complex appears to have resolved Right lung cancer was treated with radiation and chemotherapy/immunotherapy approximately 2 years ago anemia Bilateral mammogram 1229-23 BIRAD 2 Plan: continue to follow with medical oncology bilateral mammogram in 1 year with appointment at that time CC : Dr. Garcia
== END ==
LOC: WWCWWP 09:15
PROVIDERS: ATTEND Surgery
DX: N60.11 Diffuse cystic mastopathy of right breast (principal); D64.9 Anemia, unspecified; E78.00 Pure hypercholesterolemia, unspecified; I10 Essential (primary) hypertension; J44.9 Chronic obstructive pulmonary disease, unspecified; Z86.718 Personal history of other venous thrombosis and embolism; Z86.73 Personal history of transient ischemic attack (TIA), and cerebral infarction without residual deficits; Z87.19 Personal history of other diseases of the digestive system; Z87.891 Personal history of nicotine dependence; Z79.01 Long term (current) use of anticoagulants; Z79.1 Long term (current) use of non-steroidal anti-inflammatories (NSAID); Z85.118 Personal history of other malignant neoplasm of bronchus and lung; Z85.828 Personal history of other malignant neoplasm of skin; Z92.3 Personal history of irradiation; Z88.2 Allergy status to sulfonamides; Z88.5 Allergy status to narcotic agent; Z79.899 Other long term (current) drug therapy

== ENCOUNTER → 2023-08-08 | Outpatient (CLI) | payer MEDICARE ==
[2023-08-08 10:41] LABS: African American GFR (CKD) >90 (>60 ml/min/1.73 sqM); Blood Urea Nitrogen 15 mg/dL (7-17); Non-African American GFR(CKD) 90 (>60 ml/min/1.73 sqM)
--- NOTE | 2023-08-12 08:49 | CT ---
EXAMINATION TYPE: CT ChestAbdPelvis w con DATE OF EXAM: 08/08/2023 INDICATION: Malignant neoplasm lower lobe RT lung COMPARISON: 05/02/2023 CT DLP: 2414 mGycm CONTRAST: Performed with Oral Contrast and with IV Contrast, patient injected with 100 mL of Isovue 300. TECHNIQUE: Axial images at 5 mm thick sections. Reconstructed images in the coronal plane. Delayed images through the kidneys. FINDINGS: CT CHEST: Portion of the thyroid visualized is normal. There is an enlarged subcarinal lymph node currently measuring 2.4 cm. Previous measurement 1.4 cm. Minimal posterior pleural thickening is in the left apex. Series 5 image 8. This was present previous ly. Some stable pleural thickening or peripheral nodule is in the posterior lateral right apex. Serie s 5 image 11. Some mild nonspecific infiltrates within the anterior right upper lung field lingula. S mall area of pneumonitis changes in the posterior lateral superior segment right lower lobe. Series 5 image 35. There is a 4.0 x 2.9 cm pleural-based posterior lateral right lung base mass. Previous measurement 3. 8 x 3.3 cm. The ascending aorta diameter at the level of the main pulmonary artery is 3.7 cm. The main pulmonar y artery diameter at the bifurcation is 2.[address] ABDOMEN: Liver: Normal Spleen: Normal Pancreas: Normal Adrenal glands: The adrenal glands are normal. Gallbladder: Normal Kidneys: No masses are evident. No hydronephrosis is present. No cysts are present. Delayed images were obtained through the kidneys, which remain unremarkable. Aorta: Vascular calcification is within the aorta. There is an aneurysm of the midabdominal aorta in the infrarenal region which terminates above the bifurcation measuring 4.6 cm AP dimension. Inferior vena cava: Normal. CT PELVIS: Loops of bowel within the abdomen and pelvis are normal. A few scattered diverticula are present T here are loops of bowel which are incompletely distended or lack oral contrast limiting their evaluat ion. Appendix: Normal as visualized. Urinary bladder: Normal. Genitourinary structures: Uterus and ovaries are not identified. Osseous structures: No suspicious lytic or sclerotic lesions. Degenerative changes at sacroiliac join ts. There is a grade 1 spondylolisthesis of L4 anterior to L5. Loss of disc height is noted at L5-S1. IMPRESSION: 1. Enlarging subcarinal node. Finding is suspicious for metastatic lesion. Consider PET CT for reeval uation. 2. Right lower lobe lung mass appears stable.
== END | disposition home or self-care (01) ==
LOC: RADCTMAIN 09:25
PROVIDERS: ATTEND Internal Medicine Hematology & Oncology
DX: R91.8 Other nonspecific abnormal finding of lung field (principal); C34.31 Malignant neoplasm of lower lobe, right bronchus or lung; D50.9 Iron deficiency anemia, unspecified; M12.9 Arthropathy, unspecified; E03.8 Other specified hypothyroidism; I26.99 Other pulmonary embolism without acute cor pulmonale; Z71.3 Dietary counseling and surveillance
CPT/HCPCS: 82565; 84520; 71260; 74177; 36415; Q9967

== ENCOUNTER → 2023-08-19 | Outpatient (CLI) | payer MEDICARE ==
--- NOTE | 2023-08-20 17:28 | MR ---
EXAMINATION TYPE: MR brain wo/w con DATE OF EXAM: 08/19/2023 9:31 PM CLINICAL INDICATION:Female, 73 years old with history of C34.31; PHH, Lung Cancer, Lymph node on ches t area, Numbness hands/feet, COMPARISON: 04/17/2021. TECHNIQUE: Multi planar, multi sequence imaging was performed through the brain including: T1, T2, In version recovery, susceptibility weighted imaging and gradient echo imaging and Diffusion weighted im aging. The patient was then given intravenous contrast and multi planar, T1 fat-saturation images wer e obtained. IV Contrast: 10.5 cc Gadavist FINDINGS: Mild cerebral atrophy with proportional dilation of ventricular system. Diffusion-weighted imaging s hows no evidence of restricted diffusion to suggest acute/subacute infarct. Intracranial arterial andreas w voids are maintained. Midline structures show no abnormality. Scattered foci of high T2 signal inte nsity are seen within the periventricular white matter. The susceptibility weighted images do not rev eal any evidence for micro-hemorrhage. After administration of gadolinium, no abnormal enhancement is seen. The bone marrow signal is within normal limits. Paranasal sinuses and mastoid air cells: No significant paranasal sinus disease. Trace high T2 signal seen within the mastoid air cells. Visualized orbits: Bilaterally aphakia. IMPRESSION: 1. No evidence of intracranial mass, acute/subacute infarct, or abnormal enhancement. No evidence for metastatic disease. 2. Nonspecific white matter changes, likely related to small vessel ischemic disease.
== END | disposition home or self-care (01) ==
LOC: RADMRIMAIN 20:00
PROVIDERS: ATTEND Internal Medicine Hematology & Oncology
DX: G93.89 Other specified disorders of brain (principal); C34.31 Malignant neoplasm of lower lobe, right bronchus or lung; R20.0 Anesthesia of skin
CPT/HCPCS: 70553; A9585

== ENCOUNTER 2023-09-02 06:41 | Day surgery (SDC) | payer MEDICARE ==
[~2023-09-02 06:41] MED LIST changes: +LIDOCAINE 1% (10MG/ML) FOR IV START INTRADERMA PRN
[2023-09-02] MEDS: LACTATED RINGERS 1,000 ML IV SCH (07:08)
[2023-09-02] MEDS ORDERED: LIDOCAINE 1% INJ 10MG/ML (20 ML MDV) ONE (07:34)
[2023-09-02] MEDS ORDERED: PROPOFOL 10 MG/ML 20 ML VIAL IV ONE (07:34)
[2023-09-02] MEDS ORDERED: GLYCOPYRROLATE 0.2 MG/ML 2 ML VIAL ONE (07:34)
[2023-09-02] MEDS ORDERED: fentaNYL (PF) 50 MCG/ML 2 ML AMP ONE (07:34)
[2023-09-02] MEDS ORDERED: LIDOCAINE 4% LTA KIT (4 ML) TOPICAL ONE (07:34)
[2023-09-02] MEDS ORDERED: SUCCINYLCHOLINE CHLORIDE 200 MG/10 ML VIAL IV ONE (07:34)
--- NOTE | 2023-09-02 08:25 | P.PCN ---
Date of Procedure: 09/02/23 Operative Findings: Preoperative Diagnosis: 1 history of squamous cell carcinoma 2 mediastinal lymphadenopathy Postoperative Diagnosis: 1 history of squamous cell carcinoma of the lung 2 mediastinal lymphadenopathy, rule out cancer recurrence Procedure(s) Performed: 1 flexible bronchoscopy, airway inspection 2 endoscopic ultrasound (EBUS) 3 transbronchial needle aspirate of station station 7 lymph nodes Surgeon: Korey Salgado Estimated Blood Loss (ml): 0 Pathology: other Condition: stable Disposition: same day Operative Findings: After obtaining the consent the patient was taken to the OR suite he was intubated and put on MV by anesthesia then the scope was advanced to the ET tube until the Trachea was seen and it was normal and then the serge appears normal then the scope advanced to the left main and ARNOLD LB1-LB3 were seen and no endobronchial lesions were seen then the scope advanced to the lingula and the LB4 and LB5 were seen and no endobronchial lesions were seen the scope retracted and advanced to the left lower lobes LB6 to LB12 were seen one by one and no endobronchial lesions, then the scope was retracted back to the serge and advanced to the Right main and RUL RB1 and RB2 and RB3 were seen one by one and no endobronchial lesions were seen the scope then retracted and advanced to the BI and RML RB4 and RB5 were seen and no endobronchial lesions were seen then it was retracted and advanced to the RLL RB6 to RB12 were seen one by one and no endobronchial lesions. Then EBUS was used and the lymph nodes were examined. Direct measurement of the mediastinal lymph nodes revealed a 22 x 30 mm station 7 node. In fact he was conglomeration of lymph nodes matted together in the subcarinal area. . I performed transbronchial needle aspirate of station 7 and a total of 5 passes FNA without major bleeding. The rest of the mediastinal stations were negative. No major bleeding and the scope was removed and taken out in total the patient was send to the floor in stable condition
[2023-09-02 08:57] VITALS: TEMP 97.8
--- NOTE | 2023-09-02 09:00 | XR ---
EXAMINATION TYPE: XR chest 1V portable DATE OF EXAM: 09/02/2023 HISTORY: POST BRONCH WITH BIOPSY COMPARISON: None. TECHNIQUE: Single view of the chest is submitted. FINDINGS: Demonstrated are scattered senescent parenchymal change. Persistent masslike area right medial lung base. No pneumothorax identified within the right breast. The heart is stable. Hilar and mediastinal structures are within normal limits. Degenerative changes are seen of the dorsal spine. IMPRESSION: 1. Persistent masslike area right medial lung base. No pneumothorax identified within the right lupis .
[2023-09-02 10:05] VITALS: BP 117/75; PULSE 75; RESP 19
== END 2023-09-02 09:41 | disposition home or self-care (01) ==
LOC: ORWHC2ENDO 06:41
PROVIDERS: ATTEND Internal Medicine Critical Care Medicine
DX: C78.01 Secondary malignant neoplasm of right lung (principal); I10 Essential (primary) hypertension; E78.5 Hyperlipidemia, unspecified; J44.9 Chronic obstructive pulmonary disease, unspecified; F41.9 Anxiety disorder, unspecified; E07.9 Disorder of thyroid, unspecified; K21.9 Gastro-esophageal reflux disease without esophagitis; Z86.73 Personal history of transient ischemic attack (TIA), and cerebral infarction without residual deficits; Z88.5 Allergy status to narcotic agent; Z88.2 Allergy status to sulfonamides; Z87.891 Personal history of nicotine dependence; Z79.01 Long term (current) use of anticoagulants; Z79.899 Other long term (current) drug therapy
CPT/HCPCS: 88305; 88342; 88341; 71045; 31652; 31628; J0330; J2001; J3010; J2704

== ENCOUNTER → 2023-12-26 | Outpatient (CLI) | payer MEDICARE ==
[2023-12-26 10:52] LABS: African American GFR (CKD) >90 (>60 ml/min/1.73 sqM); Blood Urea Nitrogen 17 mg/dL (7-17); Non-African American GFR(CKD) 85 (>60 ml/min/1.73 sqM)
--- NOTE | 2023-12-26 11:38 | CT ---
EXAMINATION TYPE: CT chest w con CT DLP: 567.2 mGycm, Automated exposure control for dose reduction was used. DATE OF EXAM: 12/26/2023 11:10 AM COMPARISON: PET/CT 08/25/2023, CT chest abdomen pelvis 08/08/2023, 05/02/2023, 12/14/2022, 09/03/2022. CLINICAL INDICATION:Female, 73 years old with history of C34.31 lung ca; PHH, lung ca TECHNIQUE: Multiple axial images were obtained through the chest following the administration of 100 cc of Isovue 300. . Coronal and sagittal reformats reviewed. FINDINGS: LUNGS/ PLEURA: No pleural effusion or pneumothorax. Redemonstration of a right medial lower lung mass abutting the pleura measuring 3.7 x 2.9 cm, previously measured 3.8 x 3.3 cm. There is some hyperatt enuating appearance to the lesion. Enlarging left lower lobe 4.5 mm pulmonary nodule (series 4, image 37) , previously 3.1 mm. Enlarging 7.8 mm right lower lobe pulmonary nodule (series 4, image 36). Pr eviously measured 6.3 mm. Enlarging pleural-based right mid lung pulmonary nodule measuring up to 5.8 mm (series 4, image 33). Previously measured up to 5.5 mm. Patchy reticular atelectasis within the l eft midlung. AIRWAY: Patent and unremarkable.. HEART: Mildly prominent in size. No pericardial effusion. Mild coronary artery calcifications.. MEDIASTINUM: Slight enlargement of subcarinal lymph node measuring up to 2.8 cm, previously measured 2.5 cm on prior PET/CT (series 3, image 26). This was FDG avid on prior PET/CT. Enlarged right hilar lymph nodes identified measuring up to 1.4 cm short axis (series 3, image 33). New from prior PET/CT. VASCULATURE: Prominence of the ascending thoracic aorta measuring up to 3.9 cm. Partial visualizatio n of abdominal aortic aneurysm measuring up to at least 4.3 cm. Relatively similar prior examination. There is mural thrombus again identified. MUSCULOSKELETAL: No acute osseous abnormalities. 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 No new aggressive osseous lesion. SOFT TISSUES/LYMPH NODES: Unremarkable. LOWER NECK: Small thyroid gland. UPPER ABDOMEN: No significant findings. IMPRESSION: 1. Mild enlargement of subcarinal lymph node which was FDG avid on prior PET/CT with additional enlar ging right hilar lymph nodes. Right lower lung mass is relatively stable in size. Additional few slig htly enlarged pulmonary nodules from prior examination. Findings are concerning for progression of me tastatic disease. 2. Partial visualization of abdominal aortic aneurysm measuring at least 4.3 cm.
== END | disposition home or self-care (01) ==
LOC: RADCTMAIN 10:18
PROVIDERS: ATTEND Internal Medicine Hematology & Oncology
DX: C34.31 Malignant neoplasm of lower lobe, right bronchus or lung (principal); R91.8 Other nonspecific abnormal finding of lung field; I71.40 Abdominal aortic aneurysm, without rupture, unspecified; D50.9 Iron deficiency anemia, unspecified; Z71.3 Dietary counseling and surveillance; I10 Essential (primary) hypertension; M12.9 Arthropathy, unspecified; E03.8 Other specified hypothyroidism; I26.99 Other pulmonary embolism without acute cor pulmonale
CPT/HCPCS: 82565; 84520; 71260; 36415; Q9967

== ENCOUNTER → 2024-01-05 | Outpatient (CLI) | payer MEDICARE ==
--- NOTE | 2024-01-07 13:48 | XR ---
EXAMINATION TYPE: XR chest 2V DATE OF EXAM: 01/05/2024 COMPARISON: 09/02/2023 INDICATION: History of lung cancer COPD congestion TECHNIQUE: Frontal and lateral views of the chest are obtained. FINDINGS: The heart size is normal. The pulmonary vasculature is normal. Some minimal linear atelectasis within the left midlung. Mild infiltrate may be at the right base. Co rrelate for compressive atelectasis. Some hyperinflation findings the diaphragms is present compatibl e with COPD.. IMPRESSION: 1. Mild bilateral atelectasis. 2. COPD
== END | disposition home or self-care (01) ==
LOC: RADXRMAIN 14:10
PROVIDERS: ATTEND Internal Medicine
DX: J98.11 Atelectasis (principal); J44.9 Chronic obstructive pulmonary disease, unspecified; C34.31 Malignant neoplasm of lower lobe, right bronchus or lung; E03.8 Other specified hypothyroidism; I26.99 Other pulmonary embolism without acute cor pulmonale; D50.9 Iron deficiency anemia, unspecified; R09.89 Other specified symptoms and signs involving the circulatory and respiratory systems
CPT/HCPCS: 71046

== ENCOUNTER → 2024-02-23 | Outpatient (CLI) | payer MEDICARE ==
--- NOTE | 2024-02-24 19:09 | PE ---
EXAMINATION TYPE: PET CT fusion skull to thigh DATE OF EXAM: 02/23/2024 CLINICAL INDICATION:Female, 73 years old with history of C34.1 MALIGNANT NEOPLASM OF LOWER LOBE, RT B RONCHUS OR LUNG; TECHNIQUE: Following the intravenous administration of 8.5 mCi of F-18 FDG, whole body images are p erformed from the skull base to the midthigh. Images are reviewed on the computer in the coronal, ax ial, and sagittal planes. Reconstructed rotating images are created on independent workstation and r eviewed on the computer. A non-contrast CT is performed in conjunction with the PET scan. Glucose l evel 105 mg/dL CT DLP: 935 mGycm, Automated exposure control for dose reduction was used. COMPARISON: CT 12/26/2023, PET/CT 08/25/2023, MRI: None FINDINGS: Mediastinal SUV mean is 2.7. Hepatic parenchyma SUV mean is 4.0. SKULL BASE AND NECK: No suspicious radiotracer activity. CHEST, MEDIASTINUM, AND HILAR REGION: No suspicious radiotracer activity. * New subcarinal lymph node with elevated FDG activity measuring 18 mm previously 25 mm short axis m ax SUV 9.6, previously 18.9. * Similar Right medial lower lobe mass max SUV max SUV 13.1, previously 4.5 , 13.1, measuring simila r at 37 x 32 mm. Stable scattered other pulmonary nodules including right anterior middle lobe measuring 4 mm, right l ower lobe measuring 7 mm. Left upper lobe lingula is fissure measuring 4 mm left lower lobe subpleura l measuring 5 mm. ABDOMEN AND PELVIS: No suspicious radiotracer activity. MUSCULOSKELETAL STRUCTURES: Multiple right-sided rib fractures are identified inferior right lateral/posterior region. OTHER CT: Atherosclerosis of the arterial vasculature. Ectatic ascending thoracic aorta up to 45 mm. The coronary arteries demonstrate calcification. There is mildly enlarged for size. Infrarenal abdomi nal aortic fusiform aneurysm measuring up to 44 mm. IMPRESSION: 1. Decrease in subcarinal lymph node size and metabolic activity with increase in right lower lobe m edial mass FDG activity with stable size today. Pleural uptake near the mass may be present motion ar tifact limits evaluation slightly. 2. Infrarenal abdominal aortic fusiform aneurysm measuring up to 44 mm.
== END | disposition home or self-care (01) ==
LOC: RADPETMAIN 09:24
PROVIDERS: ATTEND Internal Medicine Hematology & Oncology
DX: C34.31 Malignant neoplasm of lower lobe, right bronchus or lung (principal); D50.9 Iron deficiency anemia, unspecified; E03.8 Other specified hypothyroidism; I26.99 Other pulmonary embolism without acute cor pulmonale; I71.43 Infrarenal abdominal aortic aneurysm, without rupture
CPT/HCPCS: 78815; A9552

== ENCOUNTER → 2024-04-13 | Outpatient (CLI) | payer MEDICARE ==
--- NOTE | 2024-04-14 00:02 | MR ---
EXAMINATION TYPE: MR brain wo/w con DATE OF EXAM: 04/13/2024 COMPARISON: 02/23/2024, 08/19/2023 HISTORY: Lung cancer, occasional swelling back left side of head CONTRAST: Performed utilizing 11 mL intravenous Gadavist gadolinium contrast. TECHNIQUE: Multiplanar, multiecho imaging on a 3.0 Lore magnet is performed through the brain. Stud y is performed within 24 hours of arrival to the hospital. The craniovertebral junction is normal. The pituitary is normal. Diffusion-weighted imaging is performed. No abnormal hyperintensity is present to suggest an acute i ntracranial infarct or acute ischemic change. Multiple hyperintense white matter changes are scattered through the periventricular white matter. Th ere is also ill-defined hyperintensity within the brainstem. Correlate for microvascular ischemic nick nges. Findings were present previously. Ventricles and sulci are appropriate for the patient age. Following contrast, no abnormal enhancement is evident. IMPRESSION: 1. Periventricular and brainstem white matter changes appear chronic. Correlate for microvascular isc hemic change. Multiple sclerosis could be considered. 2. No apparent suspicious changes for metastatic disease. [facility], Workstation: [facility], 04/14/2024 12:00 AM
== END | disposition home or self-care (01) ==
LOC: RADMRIMAIN 16:55
PROVIDERS: ATTEND Internal Medicine Hematology & Oncology
CPT/HCPCS: 70553

== ENCOUNTER → 2024-04-19 | Outpatient (CLI) | payer MEDICARE ==
--- NOTE | 2024-04-20 11:41 | PE ---
EXAMINATION TYPE: PET CT fusion skull to thigh DATE OF EXAM: 04/19/2024 CLINICAL INDICATION:Female, 73 years old with history of C34.31 lung ca; TECHNIQUE: Following the intravenous administration of 12.7 mCi of F-18 FDG, whole body images are performed from the skull base to the midthigh. Images are reviewed on the computer in the coronal, a xial, and sagittal planes. Reconstructed rotating images are created on independent workstation and reviewed on the computer. A non-contrast CT is performed in conjunction with the PET scan. Glucose level 116 mg/dL CT DLP: 99 mGycm, Automated exposure control for dose reduction was used. COMPARISON: CT 12/26/2023, PET/CT 02/23/2024 08/25/2023, MRI: None FINDINGS: Mediastinal SUV mean is 2.7. Hepatic parenchyma SUV mean is 3.9. SKULL BASE AND NECK: No suspicious radiotracer activity. CHEST, MEDIASTINUM, AND HILAR REGION: * 10 R lymph node/subcarinal measuring 15 mm, previously 18 mm 25 mm short axis with small focus of uptake more right lateral max SUV 11.2, 9.6, previously 18.9. * Similar Right medial lower lobe mass max SUV 10.8 previously 13.1, 4.5 , 13.1, measuring similar a t 35 x 28 mm, previously 37 x 32 mm. Stable scattered other pulmonary nodules including: * Right anterior middle lobe measuring 4 mm, * Right lower lobe measuring 7 mm. * Left upper lobe lingula is fissure measuring 4 mm * Left lower lobe subpleural measuring 5 mm. ABDOMEN AND PELVIS: No suspicious radiotracer activity. MUSCULOSKELETAL STRUCTURES: Multiple right-sided rib fractures are identified inferior right lateral/posterior region. OTHER CT: Atherosclerosis of the arterial vasculature. Ectatic ascending thoracic aorta up to 45 mm. The coronary arteries demonstrate calcification. There is mildly enlarged for size. Infrarenal abdomi nal aortic fusiform aneurysm measuring up to 44 mm. IMPRESSION: 1. Fractionally smaller right lower lobe pulmonary nodule with persistent elevated uptake which is s lightly increased from 2. Right 10 R/subcarinal with small focus of right lateral uptake mildly increased FDG activity. 3. Pleural uptake near the mass may be present motion artifact limits evaluation slightly. 4. Infrarenal abdominal aortic fusiform aneurysm measuring up to 44 mm. [facility], , 04/20/2024 11:39 AM
== END | disposition home or self-care (01) ==
LOC: RADPETMAIN 10:02
PROVIDERS: ATTEND Internal Medicine Hematology & Oncology
CPT/HCPCS: 78815

== ENCOUNTER → 2024-07-25 | Outpatient (CLI) | payer MEDICARE ==
--- NOTE | 2024-07-25 11:32 | MM ---
Reason for Exam: Screening (asymptomatic). Last mammogram was performed 1 year(s) and 1 month(s) ago. Patient History: Menarche at age 13. First Full-Term at age 20. Left ovary removed at age 53. Right ovary removed at age 53. Hysterectomy at age 53. Postmenopausal. Other cancer, age 56. Previous chest radiation therapy. Previous chemotherapy. 06/15/2022, Benign US biopsy breast VAD RT on the right side. Benign Cyst Aspiration. 12/24/2014, Benign Core Biopsy on the right side. 05/24/2007, Attempted Procedure on the left side. 05/24/2007, Cancelled Left Mammotome on the left side. Paternal cousin had breast cancer, age 33. Risk Values: Sonal 5 year model risk: 1.9%. NCI Lifetime model risk: 4.7%. Prior Study Comparison: 06/03/2022 Bilateral MG 3D diag mammo w/cad [facility]. 06/15/2022 Right MG diagnostic mammo RT wo CAD, [facility]. 06/24/2023 Bilateral MG 3D screening mammo w/cad, [facility]. Tissue Density: The breasts are almost entirely fatty. Findings: Analyzed By CAD. Right breast: There is no suspicious group of microcalcifications or new suspicious mass. Benign-appearing calcifications right breast. Left breast: There is no suspicious group of microcalcifications or new suspicious mass. Benign-appearing calcifications left breast. Overall Assessment: Benign, BI-RAD 2 Management: Screening Mammogram of both breasts in [address] [facility] will attempt to contact patient to return for supplemental views and ultrasound if indicated. Patient should continue monthly self-breast exams. A clinical breast exam by your physician is recommended on an annual basis. This exam should not preclude additional follow-up of suspicious palpable abnormalities. Note on Sonal scores and lifetime risk: 1. A Sonal score greater than 3% is considered moderate risk. If this is the case, consider specialist referral to assess eligibility for a risk reducing agent. 2. If overall lifetime risk for the development of breast cancer is 20% or higher, the patient may qualify for future screening with alternating mammogram and breast MRI. [facility], , 07/25/2024 11:29 AM. Electronically signed and approved by: Theodore Stephens DO
== END | disposition home or self-care (01) ==
LOC: RADMAMWWP 10:48
PROVIDERS: ATTEND Family Medicine
DX: Z12.31 Encounter for screening mammogram for malignant neoplasm of breast (principal); R92.313 Mammographic fatty tissue density, bilateral breasts; R92.1 Mammographic calcification found on diagnostic imaging of breast; Z78.0 Asymptomatic menopausal state; Z80.3 Family history of malignant neoplasm of breast
CPT/HCPCS: 77063; 77067

== ENCOUNTER → 2024-10-19 | Outpatient (CLI) | payer MEDICARE ==
[2024-10-19 15:15] LABS: Basophils # (A) 0.07 X 10*3/uL (0.00-0.10); Basophils % (A) 0.8 %; Eosinophils # (A) 0.34 X 10*3/uL (0.04-0.35); Eosinophils % (A) 3.8 %; HCT 43.9 % (37.2-46.3); HGB 13.5 g/dL (12.0-15.0); Lymphocytes # (A) 2.05 X 10*3/uL (0.90-5.00); Lymphocytes % (A) 22.7 %; MCH 28.8 pg (27.0-32.0); MCHC 30.8 g/dL (32.0-37.0); MCV 93.6 FL (80.0-97.0); Mean Platelet Volume 9.6 FL (9.5-12.2); Monocytes # (A) 0.56 X 10*3/uL (0.20-1.00); Monocytes % (A) 6.2 %; NRBC Per 100 WBC 0 X 10*3/uL (0.00-0.01); Neutrophils # (A) 5.97 X 10*3/uL (1.80-7.70); Neutrophils % (A) 65.9 %; Platelet Count 253 X 10*3/uL (140-440); RBC 4.69 X 10*6/uL (4.10-5.20); RDW 14.4 % (11.5-14.5); WBC 9.04 X 10*3/uL (4.50-10.00)
[2024-10-19 17:02] LABS: ALT 13 U/L (8-44); AST 19 U/L (13-35); Albumin 4.1 g/dL (3.8-4.9); Albumin/Globulin Ratio 1.28 Ratio (1.60-3.17); Alkaline Phosphatase 86 U/L (41-126); BUN/Creat Ratio 17.43 Ratio (12.00-20.00); Blood Urea Nitrogen 12.2 mg/dL (9.0-27.0); Calcium 9.5 mg/dL (8.7-10.3); Carbon Dioxide 26.6 mmol/L (21.6-31.8); Chloride 100 mmol/L (96-109); Chol/HDL Ratio 3.18 Ratio; Globulin 3.2 g/dL (1.6-3.3); Glucose 120 mg/dL (70-110); LDL Cholesterol,Calculated 76.2 mg/dL (0.0-131.0); Magnesium 1.9 mg/dL (1.5-2.4); Potassium 4.8 mmol/L (3.5-5.5); Sodium 139 mmol/L (135-145); Total Bilirubin 0.3 mg/dL (0.3-1.2); Total Protein 7.3 g/dL (6.2-8.2)
== END | disposition home or self-care (01) ==
LOC: LABWHC1 11:34
PROVIDERS: ATTEND Family Medicine
DX: I10 Essential (primary) hypertension (principal); E78.2 Mixed hyperlipidemia; M85.80 Other specified disorders of bone density and structure, unspecified site
CPT/HCPCS: 36415; 80053; 80061; 83036; 83735; 85025

== ENCOUNTER → 2024-12-06 | Outpatient (CLI) | payer MEDICARE ==
--- NOTE | 2024-12-09 13:49 | PE ---
EXAMINATION TYPE: PET CT fusion skull to thigh DATE OF EXAM: 12/06/2024 COMPARISON: No recent CT comparison Prior PET/CT: 08/02/2024 CLINICAL INDICATION: Female, 74 years old with history of C34.31 Lung ca, TECHNIQUE: Following the intravenous administration of 9.56 mCi of F-18 FDG, whole body images are p erformed PET CT fusion skull to thigh. Images are reviewed on the computer in the coronal, axial, an d sagittal planes. Reconstructed rotating images are created on independent workstation and reviewed on the computer. A localization and attenuation correction CT is performed in conjunction with the PET scan. DLP: 1585.3 mGycm SCAN: Subsequent Blood glucose: 106 mg/dL Average Mediastinum SUV: 2.9 Average Liver SUV: 2.7 FINDINGS: NECK: There is a small area of mild uptake within the left lateral submandibular region. Small lymph nodes may be present within SUV of 3.68. Image 37 THORAX: No abnormal uptake in the region of the soft tissue density medial right lung base. SUV 1.13, example image 120 ABDOMEN: No abnormal uptake PELVIS: No abnormal uptake OSSEOUS STRUCTURES: No abnormal uptake LOCALIZATION CT: There is a 4.8 cm AP dimension inferior abdominal aortic aneurysm. COMPARISON: Previous uptake in the right hilar region is not evident. IMPRESSION: 1. No recurrent uptake within the medial right lower lobe lung mass. 2. Previous right infrahilar uptake not present on current exam. 3. Some intermediate to mildly increased uptake within the right submandibular level lymph node may b e present. 4. A 4.8 cm AP dimension abdominal aortic aneurysm [facility], , 12/09/2024 1:47 PM
== END | disposition home or self-care (01) ==
LOC: RADPETMAIN 13:08
PROVIDERS: ATTEND Internal Medicine Hematology & Oncology
DX: C34.31 Malignant neoplasm of lower lobe, right bronchus or lung (principal); I71.40 Abdominal aortic aneurysm, without rupture, unspecified
CPT/HCPCS: 78815; A9552